=== PATIENT | female | born 1950 | race Caucasian/White ===

== ENCOUNTER → 2016-06-25 | Outpatient (CLI) | payer BC ==
[~2016-06-25] MED LIST: AMOX500T PO; DICL1GEL12 EX; KETO0.0216 OPB; LCTX PO; OMEP40CA41 PO; PANT1TAB48 PO; RANI300T2 PO; ULT50X PO
--- NOTE | 2016-06-25 07:55 | DIAGNOSTIC IMAGING REPORT ---
(BARIUM SWALLOW) ESOPHAGUS CLINICAL HISTORY: Generalized abdominal pain. Reflux. Nausea. COMPARISON STUDY: None. FLUOROSCOPY TIME: 1.2 minutes. 22 images submitted. FINDINGS: The patient swallowed barium without difficulty. The contours of the hypopharynx are within normal limits. The esophagus is normal in course, caliber, motility. No hiatus hernia. No gastroesophageal reflux. IMPRESSION: Normal barium swallow. Electronically signed by: Eduardo Knutson M.D. 06/25/2016 7:53 AM Dictated Date/Time: 06/25/2016 7:52 AM
== END | disposition home or self-care (01) ==
LOC: C.RAD 06:57
PROVIDERS: ATTEND Family Medicine
DX: K21.9 Gastro-esophageal reflux disease without esophagitis (principal)

== ENCOUNTER → 2016-07-02 | Outpatient (CLI) | payer BC ==
--- NOTE | 2016-07-02 16:25 | MAMMOGRAPHY REPORT ---
BILATERAL DIGITAL SCREENING MAMMOGRAM WITH CAD: 07/02/2016 CLINICAL HISTORY: Routine screening. Patient has no complaints. TECHNIQUE: Bilateral CC and MLO views were obtained. Current study was also evaluated with a Comput er Aided Detection (CAD) system. COMPARISON: Comparison is made to exams dated: 06/28/2015 mammogram, 06/22/2013 mammogram, 06/25/2014 ma mmogram, 06/20/2012 mammogram, 05/23/2011 mammogram, and 12/06/2010 mammogram - [facility] enter. BREAST COMPOSITION: The tissue of both breasts is extremely dense, which lowers the sensitivity of mammography. FINDINGS: The parenchymal pattern is unchanged. No developing mass, architectural distortion or clu ster of suspicious microcalcifications is seen in either breast. IMPRESSION: ACR BI-RADS CATEGORY 2: BENIGN There is no mammographic evidence of malignancy. A 1 year screening mammogram is recommended. The p atient will receive written notification of the results. Approximately 10% of breast cancers are not detected with mammography. A negative mammographic repor t should not delay biopsy if a clinically suggestive mass is present. Olesya Moran M.D. ay/:07/02/2016 14:44:39 [employer] Tender: Camille MELO(Etta)(Lynn), [facility] letter sent: Normal 1/2 BI-RADS Code: ACR BI-RADS Category 2: Benign
== END | disposition home or self-care (01) ==
LOC: C.MAMM 07:07
PROVIDERS: ATTEND Obstetrics & Gynecology
DX: Z12.31 Encounter for screening mammogram for malignant neoplasm of breast (principal)

== ENCOUNTER 2016-07-03 21:02 | Emergency (ER) | payer BC ==
[~2016-07-03] VITALS: Ht 157.5 cm; Wt 44.8 kg
[~2016-07-03 21:02] MED LIST changes: -AMOX500T PO; -DICL1GEL12 EX; -KETO0.0216 OPB; -LCTX PO; -OMEP40CA41 PO; -ULT50X PO
[2016-07-03 21:08] VITALS: TEMP 36.6; Ht 157.5 cm; Wt 44.8 kg
[2016-07-03] MEDS ORDERED: SODIUM CHLORIDE 0.9% 1000ML 1,000 ML IV STA (21:28)
[2016-07-03] MEDS ORDERED: MoRPHine SULFATE 2 MG/ML CARP IV STA ×2 (21:28→22:35)
[2016-07-03] MEDS ORDERED: ONDANSETRON INJ 2 MG/ML 2 ML VIAL IV STA (21:28)
[2016-07-03] MEDS ORDERED: SODIUM CHLORIDE 0.9% 500ML 500 ML IV STA (21:28)
[2016-07-03 21:36] LABS: BASO % 0.1 %; BASO ABS # 0.01 K/uL (0-0.2); COMPLETE YES; EOS % 1.3 %; HEMATOCRIT 41.9 % (37-47); IG% 0.2 %; LYMPH % 21.1 %; LYMPH ABS # 2.58 K/uL (1.2-3.4); MEAN CELL VOLUME 91.9 fL (80-100); MEAN CORPUSCULAR HEMOGLOBIN 32.5 pg (25-34); MEAN CORPUSCULAR HGB CONC 35.3 g/dl (32-36); MEAN PLATELET VOLUME 9.2 fL (7.4-10.4); MONO % 6.3 %; PLATELET COUNT 300 K/uL (130-400); RED BLOOD COUNT 4.56 M/uL (4.2-5.4); WHITE BLOOD COUNT 12.22 K/uL (4.8-10.8)
--- NOTE | 2016-07-03 21:41 | EMERGENCY ROOM VISIT NOTE ---
History Report prepared by Edwin: Moshe Rodriguez Under the Supervision of: Dr. Jesenia Hancock M.D. First contact with patient: 21:24 Chief Complaint: ABDOMINAL PAIN Stated Complaint: SEVERE STOMACH PAIN History of Present Illness The patient is a 65 year old female who presents to the Emergency Room with complaints of persistent right lower quadrant abdominal pain beginning several hours prior to arrival. She currently rates her discomfort as an 8/10 in severity. The patient associates intermittent abdominal spasms and increased gas with today's symptoms. She states she still has her appendix. The patient notes her discomfort has localized throughout the day. She states she has a history of diverticulitis. The patient notes she has had a hysterectomy. She denies blood in her stool, diarrhea, nausea, vomiting, and urinary symptoms. Source of History: patient Onset: several hours [employer] Position: abdomen (RLQ) Associated Symptoms: + abdominal pain (intermittent spasms), No diarrhea, No hematochezia, No melena, No nausea, No urinary symptoms, No vomiting Note: Associated symptoms: increased gas. Review of Systems See HPI for pertinent positives & negatives. A total of 10 systems reviewed and were otherwise negative. Past Medical & Surgical Medical Problems: (1) Deep venous thrombosis (2) Diverticulitis (3) Hysterectomy (4) Knee Surgery Surgical Problems: (1) S/P cholecystectomy Family History Diabetes mellitus Heart disease Hypertension Kidney stones Social History Smoking Status: Never Smoker Alcohol Use: occasionally Marital Status: Housing Status: lives with family Occupation Status: employed Current/Historical Medications Scheduled Amoxicillin & Pot Clavulanate (Augmentin 500MG), 1 TAB PO BID Omeprazole (Prilosec), 40 MG PO BID Ranitidine (Zantac), 300 MG PO BID Allergies Coded Allergies: Ciprofloxacin (Unverified Adverse Reaction, Intermediate, AFFECTED ALL JOINTS, 07/03/16) Cortisone (Unverified Adverse Reaction, Mild, swelling, 07/03/16) Physical Exam Vital Signs Date Time Temp Pulse Resp B/P Pulse Ox O2 Delivery O2 Flow Rate FiO2 07/03/16 23:13 78 20 123/97 97 07/03/16 22:28 75 20 144/69 95 Room Air 07/03/16 21:08 36.6 75 16 196/84 99 Room Air Physical Exam Vital signs reviewed. General: Well-appearing [], in no significant distress. HEENT: No scleral icterus, PERRLA, neck supple. Atraumatic. Cardiovascular: Regular rate and rhythm, no extra sounds. Pulmonary: Clear to auscultation bilaterally, normal work of breathing. Abdomen: Right lower quadrant abdominal tenderness to palpation. Mild guarding. Soft, nondistended, positive bowel sounds. Musculoskeletal: Atraumatic, no peripheral edema. Neurologic: Patient awake alert and oriented x 3, full strength in all 4 extremities. Cranial nerves 2 through 12 grossly intact. Skin: Warm, dry, no rash Medical Decision & Procedures ER Provider Diagnostic Interpretation: CT results as stated below per my review and radiologist interpretation: ABDOMEN AND PELVIS CT WITH IV CONTRAST CT DOSE: 256.53 mGy.cm HISTORY: Right lower quadrant abdominal pain. TECHNIQUE: Multiaxial CT images of the abdomen and pelvis were performed following the use of intravenous contrast. COMPARISON STUDY: Abdomen and pelvis CT 12/29/2015. FINDINGS: The study is limited from a technical standpoint due to the paucity of intra-abdominal fat and the lack of oral contrast. The lung bases are clear. No pneumoperitoneum. No pneumatosis. No suspicious lytic or blastic osseous lesions. Cholecystectomy. Mild intrahepatic bile duct dilatation remains unchanged. This is likely due to the patient's postcholecystectomy state. The spleen, pancreas, and adrenal glands are unremarkable. No hydronephrosis. A 5 mm hypodense lesion within the left kidney is too small to characterize but remain stable. No retroperitoneal lymphadenopathy. The bladder is unremarkable. The uterus appears surgically absent. No pelvic free fluid. There are few fluid-filled small bowel loops within the pelvis. No dilated loops of bowel to suggest an obstruction. The appendix is identified and is normal in caliber measuring up to 4 mm. Hyperdense material within the tip of the appendix is consistent with residual barium from a prior study. No evidence for bowel obstruction. Moderate stool within the colon. Distal sigmoid diverticulosis. There may be mild thickening of the distal sigmoid colon. However, this could be due to decompression or muscular hypertrophy. No definite pericolonic inflammatory change. IMPRESSION: 1. Possible mild thickening within the distal sigmoid colon. This could be due to the decompressed sigmoid colon or muscular hypertrophy. However, a developing diverticulitis could also have a similar appearance but is considered less likely given the lack of significant adjacent inflammatory change at consider follow-up endoscopy for further evaluation to evaluate for an inflammatory process or less likely an underlying colonic mass. 2. No evidence of bowel obstruction. 3. No CT evidence for acute appendicitis. Electronically signed by: Eduardo Knutson M.D. 07/03/2016 10:35 PM Laboratory Results 07/03/16 20:10 Red Blood Count 4.56, Mean Corpuscular Volume 91.9, Mean Corpuscular Hemoglobin 32.5, Mean Corpuscular Hemoglobin Concent 35.3, Mean Platelet Volume 9.2, Neutrophils (%) (Auto) 71.0, Lymphocytes (%) (Auto) 21.1, Monocytes (%) (Auto) 6.3, Eosinophils (%) (Auto) 1.3, Basophils (%) (Auto) 0.1, Neutrophils # (Auto) 8.67, Lymphocytes # (Auto) 2.58, Monocytes # (Auto) 0.77, Eosinophils # (Auto) 0.16, Basophils # (Auto) 0.01 07/03/16 20:10 Test 07/03/16 20:10 07/03/16 21:20 White Blood Count 12.22 K/uL (4.8-10.8) Red Blood Count 4.56 M/uL (4.2-5.4) Hemoglobin 14.8 g/dL (12.0-16.0) Hematocrit 41.9 % (37-47) Mean Corpuscular Volume 91.9 fL (80-100) Mean Corpuscular Hemoglobin 32.5 pg (25-34) Mean Corpuscular Hemoglobin Concent 35.3 g/dl (32-36) Platelet Count 300 K/uL (130-400) Mean Platelet Volume 9.2 fL (7.4-10.4) Neutrophils (%) (Auto) 71.0 % Lymphocytes (%) (Auto) 21.1 % Monocytes (%) (Auto) 6.3 % Eosinophils (%) (Auto) 1.3 % Basophils (%) (Auto) 0.1 % Neutrophils # (Auto) 8.67 K/uL (1.4-6.5) Lymphocytes # (Auto) 2.58 K/uL (1.2-3.4) Monocytes # (Auto) 0.77 K/uL (0.11-0.59) Eosinophils # (Auto) 0.16 K/uL (0-0.5) Basophils # (Auto) 0.01 K/uL (0-0.2) RDW Standard Deviation 42.4 fL (36.4-46.3) RDW Coefficient of Variation 12.6 % (11.5-14.5) Immature Granulocyte % (Auto) 0.2 % Immature Granulocyte # (Auto) 0.03 K/uL (0.00-0.02) Anion Gap 4.0 mmol/L (3-11) Est Creatinine Clear Calc Drug Dose 39.7 ml/min Estimated GFR () 68.5 Estimated GFR (Non- 59.1 BUN/Creatinine Ratio 12.9 (10-20) Calcium Level 9.5 mg/dl (8.5-10.1) Total Bilirubin 1.0 mg/dl (0.2-1) Direct Bilirubin 0.2 mg/dl (0-0.2) Aspartate Amino Transf (AST/SGOT) 20 U/L (15-37) Alanine Aminotransferase (ALT/SGPT) 28 U/L (12-78) Alkaline Phosphatase 97 U/L (45-117) Total Protein 7.8 gm/dl (6.4-8.2) Albumin 4.5 gm/dl (3.4-5.0) Lipase 352 U/L (73-393) Urine Color YELLOW Urine Appearance CLEAR (CLEAR) Urine pH 7.0 (4.5-7.5) Urine Specific [place] 1.005 (1.000-1.030) Urine Protein NEG (NEG) Urine Glucose (UA) NEG (NEG) Urine Ketones NEG (NEG) Urine Occult Blood NEG (NEG) Urine Nitrite NEG (NEG) Urine Bilirubin NEG (NEG) Urine Urobilinogen NEG (NEG) Urine Leukocyte Esterase TRACE (NEG) Urine WBC (Auto) 1-5 /hpf (0-5) Urine RBC (Auto) 0-4 /hpf (0-4) Urine Hyaline Casts (Auto) 0 /lpf (0-5) Urine Epithelial Cells (Auto) 10-20 /lpf (0-5) Urine Bacteria (Auto) NEG (NEG) Laboratory results per my review. Medications Administered Medications (Trade) Dose Ordered Sig/Austyn Route Start Time Stop Time Status Last Admin Dose Admin Sodium Chloride 500 ml @ 999 mls/hr Q31M STAT IV 07/03/16 21:28 07/03/16 21:58 DC 07/03/16 21:37 999 MLS/HR Sodium Chloride (Nss 1000ml) 1,000 ml @ 125 mls/hr Q8H STAT IV 07/03/16 21:28 07/03/16 23:30 DC 07/03/16 22:27 125 MLS/HR Morphine Sulfate (MoRPHine SULFATE INJ) 2 mg NOW STAT IV 07/03/16 21:28 07/03/16 21:30 DC 07/03/16 21:37 2 MG Ondansetron HCl (Zofran Inj) 4 mg NOW STAT IV 07/03/16 21:28 07/03/16 21:30 DC 07/03/16 21:37 4 MG Morphine Sulfate (MoRPHine SULFATE INJ) 2 mg NOW STAT IV 07/03/16 22:35 07/03/16 22:36 DC 07/03/16 22:41 2 MG Amoxicillin/ Clavulanate Potassium (Augmentin Tab) 500 mg NOW STAT PO 07/03/16 22:54 07/03/16 22:56 DC 07/03/16 23:07 500 MG ED Course 2123: Past medical records reviewed. The patient was evaluated in room C10. A complete history and physical examination was performed. 2127: Ordered Zofran Inj 4 mg IV, Morphine Sulfate 2 mg IV, Sodium Chloride 1, 000 ml @ 125 mls/hr IV, Sodium Chloride 500 ml @ 999 mls/hr IV. 5: Ordered Morphine Sulfate 2 mg IV. 2254: Ordered Augmentin Tab 500 mg PO. 2245: Upon reevaluation, the patient appeared to have improvement of her symptoms. I discussed findings with her. She verbalized agreement of the treatment plan. The patient was discharged home. Medical Decision Differential diagnosis: Etiologies such as appendicitis, diverticulitis, PUD, biliary pathology, UTI, pancreatitis, obstruction, mesenteric ischemia, aortic pathology, infections, inflammatory bowel disease, renal colic, as well as others were entertained. This patient was evaluated and appeared to be in some discomfort. IV access was obtained and laboratory work was drawn. The patient was placed on the media monitor and found to be in a normal sinus rhythm. She was hydrated with normal saline solution. Patient was given IV morphine and Zofran for pain and nausea. CT scan abdomen and pelvis was performed and reveals evidence of inflammation in the ascending colon or early diverticulitis. The patient has had difficulty with multiple antibiotics in the past. She has requested a smaller dose as she does not tolerate antibiotics well. The patient is only 45 kg. She will be placed on Augmentin 500 mg twice a day for 7 days. The patient was advised to follow-up with her primary care physician this week and return to the ER for worsening of symptoms or any medical concerns. Impression Primary Impression: Colitis Scribe Attestation The scribe's documentation has been prepared under my direction and personally reviewed by me in its entirety. I confirm that the note above accurately reflects all work, treatment, procedures, and medical decision making performed by me. Departure Information Dispostion Home / Self-Care Prescriptions Amoxicillin & Pot Clavulanate (AUGMENTIN 500MG) 1 Tab Tab 1 TAB PO BID for 7 Days, #14 TAB Prov: Jesenia Hancock M.D. 07/03/16 Referrals Garry Dobbins M.D.([facility]) (PCP) Forms HOME CARE DOCUMENTATION FORM, IMPORTANT VISIT INFORMATION Patient Instructions My [facility] Additional Instructions Diagnosis: Colitis Augmentin 500 mg twice daily for 7 days. Drink plenty of clear fluids and maintain a bland diet. Follow-up with gastroenterology as soon as possible for reevaluation. Follow-up with your primary care physician this week. Return to the ER for worsening of symptoms or any medical concerns.
[2016-07-03] MEDS ORDERED: OPTIRAY 320 IV PRN (21:45)
[2016-07-03 21:48] LABS: BUN/CREATININE RATIO 12.9 (10-20); CALCIUM 9.5 mg/dl (8.5-10.1); POTASSIUM 3.8 mmol/L (3.5-5.1)
[2016-07-03 22:05] LABS: URINE APPEARANCE CLEAR (CLEAR); URINE BILIRUBIN NEG (NEG); URINE COLOR YELLOW; URINE NITRITE NEG (NEG); URINE SPECIFIC GRAVITY 1.005 (1.000-1.030); UROBILINOGEN NEG (NEG); ZZUR CULT IF INDIC CLEAN CATCH NO
[2016-07-03 22:06] LABS: MANUAL MICROSCOPIC REQUIRED? NO; REVIEW REQ? NO
[2016-07-03] MEDS ORDERED: OMEP40CA41 PO (22:14)
--- NOTE | 2016-07-03 22:37 | DIAGNOSTIC IMAGING REPORT ---
ABDOMEN AND PELVIS CT WITH IV CONTRAST CT DOSE: 256.53 mGy.cm HISTORY: Right lower quadrant abdominal pain. TECHNIQUE: Multiaxial CT images of the abdomen and pelvis were performed following the use of intravenous contrast. COMPARISON STUDY: Abdomen and pelvis CT 12/29/2015. FINDINGS: The study is limited from a technical standpoint due to the paucity of intra-abdominal fat and the lack of oral contrast. The lung bases are clear. No pneumoperitoneum. No pneumatosis. No suspicious lytic or blastic osseous lesions. Cholecystectomy. Mild intrahepatic bile duct dilatation remains unchanged. This is likely due to the patient's postcholecystectomy state. The spleen, pancreas, and adrenal glands are unremarkable. No hydronephrosis. A 5 mm hypodense lesion within the left kidney is too small to characterize but remain stable. No retroperitoneal lymphadenopathy. The bladder is unremarkable. The uterus appears surgically absent. No pelvic free fluid. There are few fluid-filled small bowel loops within the pelvis. No dilated loops of bowel to suggest an obstruction. The appendix is identified and is normal in caliber measuring up to 4 mm. Hyperdense material within the tip of the appendix is consistent with residual barium from a prior study. No evidence for bowel obstruction. Moderate stool within the colon. Distal sigmoid diverticulosis. There may be mild thickening of the distal sigmoid colon. However, this could be due to decompression or muscular hypertrophy. No definite pericolonic inflammatory change. IMPRESSION: 1. Possible mild thickening within the distal sigmoid colon. This could be due to the decompressed sigmoid colon or muscular hypertrophy. However, a developing diverticulitis could also have a similar appearance but is considered less likely given the lack of significant adjacent inflammatory change at consider follow-up endoscopy for further evaluation to evaluate for an inflammatory process or less likely an underlying colonic mass. 2. No evidence of bowel obstruction. 3. No CT evidence for acute appendicitis. Electronically signed by: Eduardo Knutson M.D. 07/03/2016 10:35 PM Dictated Date/Time: 07/03/2016 10:25 PM
[2016-07-03] MEDS ORDERED: AMOXICILLIN/CLAVULANATE TAB 500 MG TAB PO STA (22:54)
[2016-07-03] MEDS ORDERED: AMOX500T PO (22:57)
[2016-07-03 23:13] VITALS: BP 123/97; PULSE 78; O2SAT 97
[2016-07-29] MEDS ORDERED: AMOX500T PO (13:33)
[2016-07-29] MEDS ORDERED: LCTX PO (13:33)
[2016-07-29] MEDS ORDERED: ULT50X PO (13:33)
== END 2016-07-03 23:15 | disposition home or self-care (01) ==
LOC: C.EDB 21:03 → C.EDC 23:15
DX: K52.9 Noninfective gastroenteritis and colitis, unspecified (principal); Z79.899 Other long term (current) drug therapy; Z86.718 Personal history of other venous thrombosis and embolism; Z87.19 Personal history of other diseases of the digestive system; Z90.710 Acquired absence of both cervix and uterus; Z82.49 Family history of ischemic heart disease and other diseases of the circulatory system; Z83.3 Family history of diabetes mellitus; Z84.1 Family history of disorders of kidney and ureter

== ENCOUNTER 2016-07-25 16:19 | Inpatient (IN) | payer BC, OTHER ==
[~2016-07-25] VITALS: Ht 160 cm; Wt 44.0 kg
[~2016-07-25 16:19] MED LIST changes: +OMEP40CA41 PO; -PANT1TAB48 PO
[2016-07-25] MEDS ORDERED: ONDANSETRON INJ 2 MG/ML 2 ML VIAL IV STA (16:35)
[2016-07-25] MEDS ORDERED: SODIUM CHLORIDE 0.9% 1000ML 1,000 ML IV STA ×2 (16:35→18:16)
[2016-07-25] MEDS ORDERED: MoRPHine SULFATE 4 MG/ML 1 ML CARP\\VIAL IV STA (16:35)
[2016-07-25] MEDS ORDERED: OPTIRAY 320 IV PRN (16:45)
--- NOTE | 2016-07-25 16:49 | EMERGENCY ROOM VISIT NOTE ---
History First contact with patient: 16:27 Chief Complaint: ABDOMINAL PAIN Stated Complaint: SEVERE ABDOMINAL PAIN Nursing Triage Summary: Pt presents with c/o lower abd pain worse on the left side that began last night. Nausea. Hx of diverticulitis, this feels worse. History of Present Illness The patient is a 65 year old female who presents to the Emergency Room with complaints of abdominal pain. The patient states the pain started last night. She states the pain is left lower quadrant. She reports associated nausea. She states the pain is severe and has persisted and worsened. She rates her discomfort an 8/10. She reports a feeling spasm that spreads across the lower abdomen. She denies any fevers or chills. She denies any pain in her chest or trouble breathing. She denies any diarrhea. She denies any urinary symptoms. The patient has a history of diverticulitis and states feels worse. She had a normal colonoscopy in February. The patient was seen here last month and diagnosed with colitis/possible early diverticulitis and is on Augmentin. Those symptoms seemed to resolve. Review of Systems A 10 system review of systems was completed with positives and pertinent negatives listed in the HPI. Past Medical/Surgical History Medical Problems: (1) Acute diverticulitis (2) Deep venous thrombosis (3) Diverticulitis (4) GERD (gastroesophageal reflux disease) (5) History of diverticulitis (6) Knee Surgery (7) Osteoarthritis Surgical Problems: (1) H/O colonoscopy (2) H/O esophagogastroduodenoscopy (3) History of cataract surgery (4) S/P cholecystectomy (5) S/P laparoscopic cholecystectomy (6) S/P LEVAR-BSO Family History Diabetes mellitus Heart disease Hypertension Kidney stones Social History Smoking Status: Never Smoker Alcohol Use: occasionally Marital Status: Housing Status: lives with family Occupation Status: employed Current/Historical Medications Scheduled Omeprazole (Prilosec), 40 MG PO BID Ranitidine (Zantac), 300 MG PO BID Scheduled PRN Diclofenac Sodium (Topical) (Voltaren 1% Top Gel), 1 APPLN EX UD PRN for Pain Ketotifen Fumarate (Ophth) (Zaditor 0.025% Oph), 1 DROP OPB Q12H PRN for seasonal allergies Allergies Coded Allergies: Ciprofloxacin (Unverified Adverse Reaction, Intermediate, AFFECTED ALL JOINTS, 5/3/17) Cortisone (Unverified Adverse Reaction, Mild, swelling, 07/25/16) Physical Exam Vital Signs Date Time Temp Pulse Resp B/P Pulse Ox O2 Delivery O2 Flow Rate FiO2 07/25/16 18:04 81 18 139/76 98 Room Air 07/25/16 16:22 36.6 92 18 165/87 98 Room Air Physical Exam VITALS: Vitals are noted on the nurse's note and reviewed by myself. Vital signs stable. The patient is afebrile. GENERAL: This is a 65-year-old female, in no acute distress, nondiaphoretic, well-developed well-nourished. SKIN: The skin was without rashes, erythema, edema, or bruising. There is no tenting of the skin. Capillary reflex less than 2 seconds. HEAD: Normocephalic atraumatic. EARS: External ears are normal in appearance. EYES: Pupils equal round and reactive to light and accommodation. Conjunctivae without injection, sclerae without icterus. Extraocular movements intact. NOSE: Patent, turbinates without inflammation or discharge. MOUTH: Mucous membranes moist. Tonsils are not enlarged. Pharynx without erythema or exudate. Uvula midline. Airway patent. Tongue does not deviate. NECK: Supple without nuchal rigidity. No lymphadenopathy. No thyromegaly. Cervical spine is nontender. No JVD. HEART: Regular rate and rhythm without murmurs gallops or rubs. LUNGS: Clear to auscultation bilaterally without wheezes, rales or rhonchi. No retractions or accessory muscle use. ABDOMEN: Positive bowel sounds x 4. Soft, marked LLQ pain, without masses or organomegaly. MUSCULOSKELETAL: No muscle atrophy, erythema, or edema noted. Full range of motion in all extremities. Normal gait. Strength 5/5 throughout. NEURO: Patient was alert and oriented to person place and time. No focal neurological deficits. Medical Decision & Procedures ER Provider Diagnostic Interpretation: [~ rep ct add3]] CT SCAN OF THE ABDOMEN AND PELVIS WITH IV CONTRAST CLINICAL HISTORY: Left lower quadrant abdominal pain. COMPARISON STUDY: Prior abdominal CT scans, most recently dated 07/03/2016. TECHNIQUE: Following the IV administration of 94 cc of Optiray 320, CT scan of the abdomen and pelvis is performed from the lung bases to the proximal femora. Images are reviewed in the axial, sagittal, and coronal planes. IV contrast was administered without complication. Automated dose control exposure was utilized. CT DOSE: 234.26 mGy.cm FINDINGS: Lung bases: The heart is normal in size and without pericardial effusion. The lung bases are clear. Liver: The contrast-enhanced liver is normal in size, contour, and attenuation. There is central intrahepatic biliary ductal dilatation, likely related to previous cholecystectomy. The hepatic veins and portal veins are patent. Gallbladder: Surgically absent noting clips in the gallbladder fossa. Spleen: Normal in size and attenuation. There is an indeterminant 1.6 cm low-attenuation lesion in the anterior spleen. This has not significantly changed dating back to 2013 and is of doubtful significance. Additional subcentimeter splenic densities are incidentally noted. Pancreas: Unremarkable. Adrenal glands: Unremarkable. Kidneys: The contrast enhanced kidneys are normal in size and without hydronephrosis. The kidneys enhance symmetrically. A subcentimeter cortical hypodensity in left kidney represent a cyst but is too small for definitive characterization. This is unchanged from previous. Abdominal vasculature: The abdominal aorta is normal in course and caliber. Bowel: There is no bowel obstruction. There is mild to moderate diverticulosis of the sigmoid colon. There is wall thickening and pericolonic inflammation identified involving the sigmoid colon typical in appearance for acute diverticulitis. There is no evidence of diverticular abscess. The appendix is nonocclusive visualized. Peritoneum: There is no intraperitoneal free air or abdominal ascites. Lymphadenopathy: None. Pelvic viscera: The bladder is normal as visualized. The uterus is surgically absent. No adnexal lesion is seen. Skeletal structures: The skeletal structures are osteopenic. No lytic or blastic lesions are seen. A sclerotic focus in the body of L3 is unchanged from 2013 and of doubtful significance. There is mild lumbosacral spondylosis. Degenerative change is also seen involving the sacroiliac joints. IMPRESSION: There is sigmoid diverticulosis, with wall thickening and pericolonic inflammation seen involving the sigmoid colon. The appearance likely represents acute sigmoid diverticulitis. No intraperitoneal free air is seen and there is no evidence of diverticular abscess. SINGLE VIEW CHEST CLINICAL HISTORY: Generalized abdominal pain. FINDINGS: An AP, portable, upright chest radiograph is compared to study dated 01/23/2016. The examination is degraded by portable technique and patient rotation. The cardiomediastinal silhouette is unremarkable. There is atherosclerotic calcification of the thoracic aorta. The lungs appear hyperinflated and hyperlucent with flattening the diaphragm suggesting emphysema. Biapical scarring is observed. No airspace consolidation or pleural effusion is seen. No pneumothorax is identified. The bony thorax is grossly intact. IMPRESSION: Findings suggest emphysema. There is no acute cardiopulmonary abnormality. Laboratory Results 07/25/16 16:40 Red Blood Count 4.51, Mean Corpuscular Volume 94.7, Mean Corpuscular Hemoglobin 32.8, Mean Corpuscular Hemoglobin Concent 34.7, Mean Platelet Volume 9.3, Neutrophils (%) (Auto) 86.1, Lymphocytes (%) (Auto) 7.9, Monocytes (%) (Auto) 5.4, Eosinophils (%) (Auto) 0.2, Basophils (%) (Auto) 0.1, Neutrophils # (Auto) 11.31, Lymphocytes # (Auto) 1.04, Monocytes # (Auto) 0.71, Eosinophils # (Auto) 0.02, Basophils # (Auto) 0.01 07/25/16 16:40 Test 07/25/16 04:44 07/25/16 16:40 07/25/16 16:42 07/25/16 16:59 White Blood Count 13.13 K/uL (4.8-10.8) Red Blood Count 4.51 M/uL (4.2-5.4) Hemoglobin 14.8 g/dL (12.0-16.0) Hematocrit 42.7 % (37-47) Mean Corpuscular Volume 94.7 fL (80-100) Mean Corpuscular Hemoglobin 32.8 pg (25-34) Mean Corpuscular Hemoglobin Concent 34.7 g/dl (32-36) Platelet Count 335 K/uL (130-400) Mean Platelet Volume 9.3 fL (7.4-10.4) Neutrophils (%) (Auto) 86.1 % Lymphocytes (%) (Auto) 7.9 % Monocytes (%) (Auto) 5.4 % Eosinophils (%) (Auto) 0.2 % Basophils (%) (Auto) 0.1 % Neutrophils # (Auto) 11.31 K/uL (1.4-6.5) Lymphocytes # (Auto) 1.04 K/uL (1.2-3.4) Monocytes # (Auto) 0.71 K/uL (0.11-0.59) Eosinophils # (Auto) 0.02 K/uL (0-0.5) Basophils # (Auto) 0.01 K/uL (0-0.2) RDW Standard Deviation 43.0 fL (36.4-46.3) RDW Coefficient of Variation 12.5 % (11.5-14.5) Immature Granulocyte % (Auto) 0.3 % Immature Granulocyte # (Auto) 0.04 K/uL (0.00-0.02) Prothrombin Time 11.1 SECONDS (9.0-12.0) Prothromb Time International Ratio 1.0 (0.9-1.1) Activated Partial Thromboplast Time 24.9 SECONDS (21.0-31.0) Partial Thromboplastin Ratio 1.0 Est Creatinine Clear Calc Drug Dose 41.4 ml/min Estimated GFR () 73.8 Estimated GFR (Non- 63.7 BUN/Creatinine Ratio 13.8 (10-20) Calcium Level 9.8 mg/dl (8.5-10.1) Total Bilirubin 1.8 mg/dl (0.2-1) Aspartate Amino Transf (AST/SGOT) 14 U/L (15-37) Alanine Aminotransferase (ALT/SGPT) 26 U/L (12-78) Alkaline Phosphatase 102 U/L (45-117) Total Protein 7.6 gm/dl (6.4-8.2) Albumin 4.6 gm/dl (3.4-5.0) Globulin 3.0 gm/dl (2.5-4.0) Albumin/Globulin Ratio 1.5 (0.9-2) Urine Color YELLOW Urine Appearance CLEAR (CLEAR) Urine pH 5.5 (4.5-7.5) Urine Specific [place] 1.023 (1.000-1.030) Urine Protein NEG (NEG) Urine Glucose (UA) NEG (NEG) Urine Ketones 3+ (NEG) Urine Occult Blood TRACE (NEG) Urine Nitrite NEG (NEG) Urine Bilirubin NEG (NEG) Urine Urobilinogen NEG (NEG) Urine Leukocyte Esterase TRACE (NEG) Urine WBC (Auto) 5-10 /hpf (0-5) Urine RBC (Auto) 0-4 /hpf (0-4) Urine Hyaline Casts (Auto) 1-5 /lpf (0-5) Urine Epithelial Cells (Auto) 10-20 /lpf (0-5) Urine Bacteria (Auto) NEG (NEG) Lactic Acid Level 1.0 mmol/L (0.4-2.0) Test 07/25/16 17:04 Bedside Hemoglobin 14.3 g/dl (12.0-16.0) Bedside Hematocrit 42 % (37-47) Bedside Sodium 138 mEq/L (135-144) Bedside Potassium 4.1 mEq/L (3.3-5.0) Bedside Chloride 103 mEq/L (101-112) Bedside Total CO2 21 mEq/l (24-31) Anion Gap 20.0 mmol/L (16-25) Bedside Blood Urea Nitrogen 12 mg/dl (7-18) Bedside Creatinine 0.7 mg/dl (0.6-1.3) Bedside Glucose (other) 114 mg/dl (70-99) Bedside Ionized Calcium (Epifanio) 1.17 mmol/l (1.12-1.32) Medications Administered Medications (Trade) Dose Ordered Sig/Austyn Route Start Time Stop Time Status Last Admin Dose Admin Sodium Chloride (Nss 1000ml) 1,000 ml @ 999 mls/hr Q1H1M STAT IV 07/25/16 16:35 07/25/16 17:35 DC 07/25/16 17:11 999 MLS/HR Ondansetron HCl (Zofran Inj) 4 mg NOW STAT IV 07/25/16 16:35 07/25/16 16:37 DC 07/25/16 16:54 4 MG Morphine Sulfate 4 mg 4 mg NOW STAT IV 07/25/16 16:35 07/25/16 16:37 DC 07/25/16 16:55 4 MG Ampicillin Sodium/ Sulbactam Sodium 3000 mg/Sodium Chloride 108 ml @ 200 mls/hr ONE ONCE IV 07/25/16 18:30 07/25/16 19:02 DC 07/25/16 19:11 200 MLS/HR Sodium Chloride (Nss 1000ml) 1,000 ml @ 125 mls/hr Q8H STAT IV 07/25/16 18:16 07/25/16 21:13 DC 07/25/16 18:24 125 MLS/HR Morphine Sulfate (MoRPHine SULFATE INJ) 2 mg NOW STAT IV 07/25/16 18:16 5/3/17 18:18 DC 07/25/16 18:24 2 MG ED Course The patient was seen and examined. Previous visits were reviewed. The patient does not have a fever but does have a leukocytosis of 13.13. She does not have any significant electrolyte abnormalities. Lactic acid is not elevated. INR was 1. Urinalysis suggests contamination. CT scan of the abdomen and pelvis with IV contrast was obtained as above and reveal sigmoid diverticulitis without evidence of free air or abscess The patient was hydrated with normal saline The patient was given 4 mg IV Zofran and 4 mg IV morphine with moderate improvement in her pain She was given IV Unasyn as she is allergic to ciprofloxacin. She was given additional 2 mg IV morphine The patient presents emergency department with recurrent diverticulitis. She has had significant pain and nausea home. The patient does have ketones on urine suggesting dehydration. The patient does not feel that she would tolerate oral medication at home very well. Therefore, I discussed the case with the hospitalist service and they will evaluate the patient. The case was discussed with Dr. Watt who agrees with the assessment and treatment plan. Medical Decision DIFFERENTIAL DIAGNOSIS: Hepatitis, cholecystitis, cholangitis, biliary colic, pancreatitis, pneumonia, subdiaphragmatic abscess, appendicitis, inguinal hernia , nephrolithiasis, inflammatory bowel disease, mesenteric adenitis, peptic ulcer disease, GERD, gastritis, pancreatitis, myocardial infarction, pericarditis, ruptured aortic aneurysm, appendicitis, gastroenteritis, bowel obstruction, splenic infarct, diverticulitis, mesenteric ischemia, metabolic, peritonitis, among others. Impression Primary Impression: Acute diverticulitis Departure Information Dispostion Admitted as an inpatient Condition GOOD Referrals Garry Dobbins M.D.([facility]) (PCP) Patient Instructions My [facility]
[2016-07-25 16:54] LABS: BASO % 0.1 %; BASO ABS # 0.01 K/uL (0-0.2); COMPLETE YES; EOS % 0.2 %; HEMATOCRIT 42.7 % (37-47); IG% 0.3 %; LYMPH % 7.9 %; LYMPH ABS # 1.04 K/uL (1.2-3.4); MEAN CELL VOLUME 94.7 fL (80-100); MEAN CORPUSCULAR HEMOGLOBIN 32.8 pg (25-34); MEAN CORPUSCULAR HGB CONC 34.7 g/dl (32-36); MEAN PLATELET VOLUME 9.3 fL (7.4-10.4); MONO % 5.4 %; NEUT % 86.1 %; PLATELET COUNT 335 K/uL (130-400); RED BLOOD COUNT 4.51 M/uL (4.2-5.4); WHITE BLOOD COUNT 13.13 K/uL (4.8-10.8)
--- NOTE | 2016-07-25 16:56 | DIAGNOSTIC IMAGING REPORT ---
SINGLE VIEW CHEST CLINICAL HISTORY: Generalized abdominal pain. FINDINGS: An AP, portable, upright chest radiograph is compared to study dated 01/23/2016. The examination is degraded by portable technique and patient rotation. The cardiomediastinal silhouette is unremarkable. There is atherosclerotic calcification of the thoracic aorta. The lungs appear hyperinflated and hyperlucent with flattening the diaphragm suggesting emphysema. Biapical scarring is observed. No airspace consolidation or pleural effusion is seen. No pneumothorax is identified. The bony thorax is grossly intact. IMPRESSION: Findings suggest emphysema. There is no acute cardiopulmonary abnormality. Electronically signed by: Jaun Boykin M.D. 07/25/2016 4:55 PM Dictated Date/Time: 07/25/2016 4:54 PM
[2016-07-25 16:59] LABS: URINE APPEARANCE CLEAR (CLEAR); URINE BILIRUBIN NEG (NEG); URINE COLOR YELLOW; URINE NITRITE NEG (NEG); URINE PH 5.5 (4.5-7.5); URINE SPECIFIC GRAVITY 1.023 (1.000-1.030); UROBILINOGEN NEG (NEG); ZZUR CULT IF INDIC CLEAN CATCH NO
[2016-07-25 17:01] LABS: MANUAL MICROSCOPIC REQUIRED? NO; REVIEW REQ? NO
[2016-07-25 17:02] LABS: PROTHROMBIN TIME (PATIENT) 11.1 SECONDS (9.0-12.0)
[2016-07-25 17:11] LABS: BUN/CREATININE RATIO 13.8 (10-20); CALCIUM 9.8 mg/dl (8.5-10.1); CREATININE 0.94 mg/dl (0.60-1.20)
[2016-07-25 17:14] LABS: ALB/GLOB RATIO 1.5 (0.9-2)
[2016-07-25 17:17] LABS: ISTAT CREATININE 0.7 mg/dl (0.6-1.3); ISTAT HEMOGLOBIN 14.3 g/dl (12.0-16.0); ISTAT IONIZED CALCIUM 1.17 mmol/l (1.12-1.32)
--- NOTE | 2016-07-25 18:00 | DIAGNOSTIC IMAGING REPORT ---
CT SCAN OF THE ABDOMEN AND PELVIS WITH IV CONTRAST CLINICAL HISTORY: Left lower quadrant abdominal pain. COMPARISON STUDY: Prior abdominal CT scans, most recently dated 07/03/2016. TECHNIQUE: Following the IV administration of 94 cc of Optiray 320, CT scan of the abdomen and pelvis is performed from the lung bases to the proximal femora. Images are reviewed in the axial, sagittal, and coronal planes. IV contrast was administered without complication. Automated dose control exposure was utilized. CT DOSE: 234.26 mGy.cm FINDINGS: Lung bases: The heart is normal in size and without pericardial effusion. The lung bases are clear. Liver: The contrast-enhanced liver is normal in size, contour, and attenuation. There is central intrahepatic biliary ductal dilatation, likely related to previous cholecystectomy. The hepatic veins and portal veins are patent. Gallbladder: Surgically absent noting clips in the gallbladder fossa. Spleen: Normal in size and attenuation. There is an indeterminant 1.6 cm low-attenuation lesion in the anterior spleen. This has not significantly changed dating back to 2012 and is of doubtful significance. Additional subcentimeter splenic densities are incidentally noted. Pancreas: Unremarkable. Adrenal glands: Unremarkable. Kidneys: The contrast enhanced kidneys are normal in size and without hydronephrosis. The kidneys enhance symmetrically. A subcentimeter cortical hypodensity in left kidney represent a cyst but is too small for definitive characterization. This is unchanged from previous. Abdominal vasculature: The abdominal aorta is normal in course and caliber. Bowel: There is no bowel obstruction. There is mild to moderate diverticulosis of the sigmoid colon. There is wall thickening and pericolonic inflammation identified involving the sigmoid colon typical in appearance for acute diverticulitis. There is no evidence of diverticular abscess. The appendix is nonocclusive visualized. Peritoneum: There is no intraperitoneal free air or abdominal ascites. Lymphadenopathy: None. Pelvic viscera: The bladder is normal as visualized. The uterus is surgically absent. No adnexal lesion is seen. Skeletal structures: The skeletal structures are osteopenic. No lytic or blastic lesions are seen. A sclerotic focus in the body of L3 is unchanged from 2013 and of doubtful significance. There is mild lumbosacral spondylosis. Degenerative change is also seen involving the sacroiliac joints. IMPRESSION: There is sigmoid diverticulosis, with wall thickening and pericolonic inflammation seen involving the sigmoid colon. The appearance likely represents acute sigmoid diverticulitis. No intraperitoneal free air is seen and there is no evidence of diverticular abscess. Electronically signed by: Jaun Boykin M.D. 07/25/2016 5:59 PM Dictated Date/Time: 07/25/2016 5:52 PM
[2016-07-25] MEDS ORDERED: MoRPHine SULFATE 2 MG/ML CARP IV STA (18:16)
[2016-07-25] MEDS ORDERED: AMPICILLIN/SULBACTAM SOD INJ 3,000 MG in SODIUM CHLORIDE 0.9% 100ML 100 ML IV ONE (18:30)
[2016-07-25] MEDS ORDERED: DICL1GEL12 EX (18:58)
[2016-07-25] MEDS ORDERED: KETO0.0216 OPB (18:58)
[2016-07-25] MEDS ORDERED: ENOXAPARIN 40 MG/0.4 ML SYR SQ SCH (19:15)
[2016-07-25] MEDS ORDERED: CEFTRIAXONE SOD INJ 1 GM in DEXTROSE 5% ADD-VANTAGE 50ML 50 ML IV SCH (19:30)
[2016-07-25] MEDS ORDERED: METRONIDAZOLE / NSS 500 MG in PREMIXED NSS 100 ML IV SCH (19:30)
--- NOTE | 2016-07-25 19:47 | History and Physical ---
History & Physical Date & Time of Service: July 25, 2016 at 19:01 Chief Complaint: Severe Abdominal Pain Primary Care Physician: Garry Dobbins M.D.([facility]O) History of Present Illness Source: patient, clinic records, hospital records This is a 65 year old female with PMH of diverticulitis, GERD, osteoarthritis, who presents to the ED with abdominal pain. Patient was recently seen in ER for abdominal in early June 2016 and treated with 7 day course of Augmentin for possible developing sigmoid diverticulitis seen on CT. Abdominal pain had resolved. Then last night around 8 pm she developed severe LLQ abdominal pain which radiates across the entire abdomen. She describes pain as spasms which wax and wane. She currently rates pain 8/10. Morphine given in ER helped. She reports associated chills as well as nausea which resolved with Zofran. She reports ongoing reflux despite being on omeprazole 40 mg BID and ranitidine 300 mg BID. She reports chronic dry cough attributed to reflux. Pt has seen Dr. Jon and is scheduled for pH impedance and motility study in August. Patient reports having a normal consistency BM this morning. She chronically has intermittent trace red blood on the toilet paper and rectal discomfort attributed to her known hemorrhoids. Weight is down approx 4 lb over past month. She did not eat today but appetite was normal before that. She denies fever, swallowing difficulty, chest pain, SOB, diarrhea, melena, dysuria, urinary frequency. Her first diverticulitis episode was last year and was treated as an outpatient and last's months possible episode was her second occurrence. NSAID use is rare (once per month). Last EGD/ colonoscopy in February 2016- results noted below. Past Medical/Surgical History Medical Problems: (1) Deep venous thrombosis Permanent Comment: possibly related to oral contraceptive pills; no longer on anticoagulation Status: Chronic (2) Diverticulitis Status: Resolved (3) GERD (gastroesophageal reflux disease) Status: Chronic (4) History of diverticulitis Status: Chronic (5) Knee Surgery Status: Resolved (6) Osteoarthritis Status: Chronic Surgical Problems: (1) H/O colonoscopy Status: Chronic (2) H/O esophagogastroduodenoscopy Status: Chronic (3) History of cataract surgery Status: Chronic (4) S/P cholecystectomy Status: Resolved (5) S/P laparoscopic cholecystectomy Status: Chronic (6) S/P LEVAR-BSO Status: Chronic Family History Cardiac disorder FATHER Diabetes mellitus FATHER MOTHER Heart disease MOTHER ( age 83 of [place]) Hypertension Kidney stones Social History Smoking Status: Never Smoker Alcohol Use: occasionally (rare) Drug Use: none Marital Status: Housing status: lives with significant other Occupational Status: employed Immunizations History of Influenza Vaccine: Yes Influenza Vaccine Date: Jan 22, 2012 History of Tetanus Vaccine?: Yes History of Pneumococcal: No History of Hepatitis B Vaccine: No Multi-Drug Resistant Organisms History of MDRO: No Allergies Coded Allergies: Ciprofloxacin (Unverified Adverse Reaction, Intermediate, AFFECTED ALL JOINTS, 07/25/16) Cortisone (Unverified Adverse Reaction, Mild, swelling, 07/25/16) Home Medications Scheduled Omeprazole (Prilosec), 40 MG PO BID Ranitidine (Zantac), 300 MG PO BID Scheduled PRN Diclofenac Sodium (Topical) (Voltaren 1% Top Gel), 1 APPLN EX UD PRN for Pain Ketotifen Fumarate (Ophth) (Zaditor 0.025% Oph), 1 DROP OPB Q12H PRN for seasonal allergies Review of Systems Ten systems reviewed and negative except as listed in HPI. Physical Exam Vital Signs Date Time Temp Pulse Resp B/P Pulse Ox O2 Delivery O2 Flow Rate FiO2 07/25/16 18:04 81 18 139/76 98 Room Air 07/25/16 16:22 36.6 92 18 165/87 98 Room Air General Appearance: + thin, + pertinent finding (very pleasant alert 65 year old female, lying in bed, no distress) Head: normocephalic, atraumatic Eyes: normal inspection, PERRL, EOMI ENT: hearing grossly normal, pharynx normal Neck: supple, trachea midline Respiratory/Chest: lungs clear, normal breath sounds, no respiratory distress Cardiovascular: regular rate, rhythm, no murmur Abdomen/GI: soft, + abnormal bowel sounds (hyperactive bowel sounds), + pertinent finding (moderately tender in left lower quadrant, mildly tender in right lower quadrant) Extremities/Musculoskelatal: no calf tenderness, no pedal edema Neurologic/Psych: alert, normal mood/affect, oriented x 3, + pertinent finding (no focal deficit on gross examination) Skin: normal color, warm/dry Diagnostics Laboratory Results Results Past 24 Hours Test 07/25/16 16:40 07/25/16 16:42 07/25/16 16:59 07/25/16 17:04 Range/Units White Blood Count 13.13 4.8-10.8 K/uL Red Blood Count 4.51 4.2-5.4 M/uL Hemoglobin 14.8 12.0-16.0 g/dL Hematocrit 42.7 37-47 % Mean Corpuscular Volume 94.7 80-100 fL Mean Corpuscular Hemoglobin 32.8 25-34 pg Mean Corpuscular Hemoglobin Concent 34.7 32-36 g/dl Platelet Count 335 130-400 K/uL Mean Platelet Volume 9.3 7.4-10.4 fL Neutrophils (%) (Auto) 86.1 % Lymphocytes (%) (Auto) 7.9 % Monocytes (%) (Auto) 5.4 % Eosinophils (%) (Auto) 0.2 % Basophils (%) (Auto) 0.1 % Neutrophils # (Auto) 11.31 1.4-6.5 K/uL Lymphocytes # (Auto) 1.04 1.2-3.4 K/uL Monocytes # (Auto) 0.71 0.11-0.59 K/uL Eosinophils # (Auto) 0.02 0-0.5 K/uL Basophils # (Auto) 0.01 0-0.2 K/uL RDW Standard Deviation 43.0 36.4-46.3 fL RDW Coefficient of Variation 12.5 11.5-14.5 % Immature Granulocyte % (Auto) 0.3 % Immature Granulocyte # (Auto) 0.04 0.00-0.02 K/uL Prothrombin Time 11.1 9.0-12.0 SECONDS Prothromb Time International Ratio 1.0 0.9-1.1 Activated Partial Thromboplast Time 24.9 21.0-31.0 SECONDS Partial Thromboplastin Ratio 1.0 Sodium Level 139 136-145 mmol/L Potassium Level 4.0 3.5-5.1 mmol/L Chloride Level 104 98-107 mmol/L Carbon Dioxide Level 27 21-32 mmol/L Anion Gap 8.0 20.0 16-25 mmol/L Blood Urea Nitrogen 13 7-18 mg/dl Creatinine 0.94 0.60-1.20 mg/dl Est Creatinine Clear Calc Drug Dose 41.4 ml/min Estimated GFR () 73.8 Estimated GFR (Non- 63.7 BUN/Creatinine Ratio 13.8 10-20 Random Glucose 111 70-99 mg/dl Calcium Level 9.8 8.5-10.1 mg/dl Total Bilirubin 1.8 0.2-1 mg/dl Aspartate Amino Transf (AST/SGOT) 14 15-37 U/L Alanine Aminotransferase (ALT/SGPT) 26 12-78 U/L Alkaline Phosphatase 102 45-117 U/L Total Protein 7.6 6.4-8.2 gm/dl Albumin 4.6 3.4-5.0 gm/dl Globulin 3.0 2.5-4.0 gm/dl Albumin/Globulin Ratio 1.5 0.9-2 Urine Color YELLOW Urine Appearance CLEAR CLEAR Urine pH 5.5 4.5-7.5 Urine Specific [place] 1.023 1.000-1.030 Urine Protein NEG NEG Urine Glucose (UA) NEG NEG Urine Ketones 3+ NEG Urine Occult Blood TRACE NEG Urine Nitrite NEG NEG Urine Bilirubin NEG NEG Urine Urobilinogen NEG NEG Urine Leukocyte Esterase TRACE NEG Urine WBC (Auto) 5-10 0-5 /hpf Urine RBC (Auto) 0-4 0-4 /hpf Urine Hyaline Casts (Auto) 1-5 0-5 /lpf Urine Epithelial Cells (Auto) 10-20 0-5 /lpf Urine Bacteria (Auto) NEG NEG Lactic Acid Level 1.0 0.4-2.0 mmol/L Bedside Hemoglobin 14.3 12.0-16.0 g/dl Bedside Hematocrit 42 37-47 % Bedside Sodium 138 135-144 mEq/L Bedside Potassium 4.1 3.3-5.0 mEq/L Bedside Chloride 103 101-112 mEq/L Bedside Total CO2 21 24-31 mEq/l Bedside Blood Urea Nitrogen 12 7-18 mg/dl Bedside Creatinine 0.7 0.6-1.3 mg/dl Bedside Glucose (other) 114 70-99 mg/dl Bedside Ionized Calcium (Epifanio) 1.17 1.12-1.32 mmol/l Diagnostic Radiology SINGLE VIEW CHEST CLINICAL HISTORY: Generalized abdominal pain. FINDINGS: An AP, portable, upright chest radiograph is compared to study dated 01/23/2016. The examination is degraded by portable technique and patient rotation. The cardiomediastinal silhouette is unremarkable. There is atherosclerotic calcification of the thoracic aorta. The lungs appear hyperinflated and hyperlucent with flattening the diaphragm suggesting emphysema. Biapical scarring is observed. No airspace consolidation or pleural effusion is seen. No pneumothorax is identified. The bony thorax is grossly intact. IMPRESSION: Findings suggest emphysema. There is no acute cardiopulmonary abnormality. CT SCAN OF THE ABDOMEN AND PELVIS WITH IV CONTRAST CLINICAL HISTORY: Left lower quadrant abdominal pain. COMPARISON STUDY: Prior abdominal CT scans, most recently dated 07/03/2016. TECHNIQUE: Following the IV administration of 94 cc of Optiray 320, CT scan of the abdomen and pelvis is performed from the lung bases to the proximal femora. Images are reviewed in the axial, sagittal, and coronal planes. IV contrast was administered without complication. Automated dose control exposure was utilized. CT DOSE: 234.26 mGy.cm FINDINGS: Lung bases: The heart is normal in size and without pericardial effusion. The lung bases are clear. Liver: The contrast-enhanced liver is normal in size, contour, and attenuation. There is central intrahepatic biliary ductal dilatation, likely related to previous cholecystectomy. The hepatic veins and portal veins are patent. Gallbladder: Surgically absent noting clips in the gallbladder fossa. Spleen: Normal in size and attenuation. There is an indeterminant 1.6 cm low-attenuation lesion in the anterior spleen. This has not significantly changed dating back to 2012 and is of doubtful significance. Additional subcentimeter splenic densities are incidentally noted. Pancreas: Unremarkable. Adrenal glands: Unremarkable. Kidneys: The contrast enhanced kidneys are normal in size and without hydronephrosis. The kidneys enhance symmetrically. A subcentimeter cortical hypodensity in left kidney represent a cyst but is too small for definitive characterization. This is unchanged from previous. Abdominal vasculature: The abdominal aorta is normal in course and caliber. Bowel: There is no bowel obstruction. There is mild to moderate diverticulosis of the sigmoid colon. There is wall thickening and pericolonic inflammation identified involving the sigmoid colon typical in appearance for acute diverticulitis. There is no evidence of diverticular abscess. The appendix is nonocclusive visualized. Peritoneum: There is no intraperitoneal free air or abdominal ascites. Lymphadenopathy: None. Pelvic viscera: The bladder is normal as visualized. The uterus is surgically absent. No adnexal lesion is seen. Skeletal structures: The skeletal structures are osteopenic. No lytic or blastic lesions are seen. A sclerotic focus in the body of L3 is unchanged from 2013 and of doubtful significance. There is mild lumbosacral spondylosis. Degenerative change is also seen involving the sacroiliac joints. IMPRESSION: There is sigmoid diverticulosis, with wall thickening and pericolonic inflammation seen involving the sigmoid colon. The appearance likely represents acute sigmoid diverticulitis. No intraperitoneal free air is seen and there is no evidence of diverticular abscess. Impression Assessment and Plan RECURRENT ACUTE SIGMOID DIVERTICULITIS Third episode; prior episodes in Nov 2015 and June [address] abdomen- acute sigmoid diverticulitis, no abscess or free air Afebrile; + leukocytosis (WBC 13k); HR and BP stable; lactic acid WNL Given dose of Unasyn in ER Will continue Unasyn; prior intolerance to Cipro and Flagyl noted IVF's; pain control with IV morphine PRN Clear liquid diet Consult general surgery GERD Has persistent symptoms despite current regimen of Prilosec and Zantac BID Seen by Dr. Jon; scheduled for pH impedance and motility study in August Continue current regimen (patient requests to bring in from home) HISTORY OF DVT In remote past possibly related to contraception pills No longer on anticoagulation RECTAL BLEEDING Known history of internal and external hemorrhoids Likely hemorrhoidal as pt reports occasional trace blood on toilet paper and rectal discomfort Hg is WNL DVT PROPHYLAXIS Lovenox SQ FULL CODE DISPOSITION Admit to med/surg Follows with Dr. Dobbins for primary care Patient seen in collaboration with Dr. Stewart. Please see his addendum. ADDENDUM: This is a 65 year old female with PMH of diverticulitis, GERD presents with acute lower abdominal pain, chills, nausea - presented to the ER and had a CT scan done, showing acute sigmoid diverticulitis. She has had this before with similar presentation, with good response to fluids and IV antibiotics. Currently pain is manageable. VITALS: Last Vital Signs Documentation Date Time Temp Pulse Resp B/P Pulse Ox O2 Delivery O2 Flow Rate FiO2 5/3/17 20:11 74 18 136/81 99 07/25/16 18:04 Room Air 07/25/16 16:22 36.6 GEN: no acute distress CVS: +s1, s2, RRR LUNGS: cta b/l, no wheezing ABD: tenderness, soft abdomen, tender to palpation in the lower abdomen, normal bowel sounds, no rigidity EXT: no edema Acute Sigmoid Diverticulitis recurrent episodes (third episode) mild leukocytosis, afebrile CT abdomen does not show abscess, perforation, etc. allergic to Cipro and does not tolerate Flagyl well will continue IV Unasyn, IVFs, clear liquid diet and advance on 07/26 if tolerated analgesics and antiemetics PRN general surgery consultation due to recurrent episodes GERD patient has persistent symptoms despite being on Prilosec BID and Zantac BID is scheduled for outpatient pH studies with GI for now, continue current medications VTE Prophylaxis VTE Risk Assessment Done? Y/N: Yes Risk Level: Moderate
[2016-07-25] MEDS ORDERED: AMPICILLIN/SULBACTAM CONSULT ACTIVE PRN ×2 (21:16)
[2016-07-25] MEDS: MoRPHine SULFATE 4 MG/ML 1 ML CARP\\VIAL IV PRN (21:44)
[2016-07-25] MEDS: SODIUM CHLORIDE 0.9% 1000ML 1,000 ML IV SCH (21:59)
[2016-07-25] MEDS: HEPARIN SOD 5000 UNIT/0.5 ML CARP SQ SCH (22:00)
[2016-07-25 22:02] VITALS: BP 161/69; PULSE 82; TEMP 36.8; O2SAT 96; Ht 160 cm; Wt 44.0 kg
[2016-07-26 00:20] VITALS: BP 121/68; PULSE 69; TEMP 36.9; O2SAT 97
[2016-07-26] MEDS ORDERED: NURSING VERBAL MED ORDER ONE (01:00)
[2016-07-26] MEDS ORDERED: OMEPRAZOLE 40 MG PO STA (01:07)
[2016-07-26] MEDS ORDERED: RANITIDINE 300 MG PO STA (01:08)
[2016-07-26] MEDS: MoRPHine SULFATE 4 MG/ML 1 ML CARP\\VIAL IV PRN ×3 (01:50→21:56)
[2016-07-26] MEDS: AMPICILLIN/SULBACTAM SOD INJ 3,000 MG in SODIUM CHLORIDE 0.9% 100ML 100 ML IV SCH ×2 (01:50→07:56)
[2016-07-26] MEDS: ONDANSETRON INJ 2 MG/ML 2 ML VIAL IV PRN ×3 (01:50→21:57)
[2016-07-26] MEDS: SODIUM CHLORIDE 0.9% 1000ML 1,000 ML IV SCH ×2 (05:06→14:40)
[2016-07-26 07:05] LABS: HEMATOCRIT 35.8 % (37-47); MEAN CELL VOLUME 95.7 fL (80-100); MEAN CORPUSCULAR HEMOGLOBIN 32.4 pg (25-34); MEAN CORPUSCULAR HGB CONC 33.8 g/dl (32-36); MEAN PLATELET VOLUME 9.4 fL (7.4-10.4); PLATELET COUNT 279 K/uL (130-400); RED BLOOD COUNT 3.74 M/uL (4.2-5.4); WHITE BLOOD COUNT 7.28 K/uL (4.8-10.8)
[2016-07-26 07:38] VITALS: BP 105/63; PULSE 68; TEMP 36.6; O2SAT 97
[2016-07-26] MEDS: OMEPRAZOLE 40 MG PO SCH ×2 (07:56→17:12)
[2016-07-26] MEDS: HEPARIN SOD 5000 UNIT/0.5 ML CARP SQ SCH ×2 (07:56→20:36)
[2016-07-26] MEDS ORDERED: PIPERACILL/TAZOBAC CONSULT ACTIVE PRN (08:30)
[2016-07-26] MEDS ORDERED: OMEPRAZOLE 40 MG PO SCH (09:00)
[2016-07-26] MEDS ORDERED: PIPERACILL/TAZOBAC IV 3.375 GM in DEXTROSE 5% 100ML IV ONE (09:00)
[2016-07-26 11:06] VITALS: BP 118/61; PULSE 67; TEMP 36.7; O2SAT 97
[2016-07-26] MEDS: RANITIDINE 300 MG PO SCH ×2 (11:57→21:55)
--- NOTE | 2016-07-26 14:32 | Progress Note ---
Internal Med Progress Note Date of Service: July 26, 2016. Provider Documentation: SUBJECTIVE: The patient was seen and examined Left lower quadrant pain is much better No Fever,chills No Nausea and or vomiting OBJECTIVE: Vital Signs-as noted below Exam: General-No distress t rest Eyes-normal ENT-normal Neck-supple Lungs-clear to ausucltate bilaterally Heart-Regular,no murmur appreciated Abdomen-Soft,mildly tender LLQ,no masses,bowel sound present Extremities-No edema [id number] Lab data as noted below. ASSESSMENT & PLAN: RECURRENT ACUTE SIGMOID DIVERTICULITIS Third episode; prior episodes in Nov 2015 and June [address] abdomen- acute sigmoid diverticulitis, no abscess or free air Given dose of Unasyn in ER Now on IV Zosyn , prior intolerance to Cipro and Flagyl noted IVF's; pain control with IV morphine PRN Clear liquid diet Consult general surgery Clinically better -WCC normalized,no fever,chills GERD Has persistent symptoms despite current regimen of Prilosec and Zantac BID Seen by Dr. Jon; scheduled for pH impedance and motility study in August Continue current regimen (patient requests to bring in from home) Denies any symptoms now HISTORY OF DVT In remote past possibly related to contraception pills No longer on anticoagulation No signs and or symptoms of DVT RECTAL BLEEDING Known history of internal and external hemorrhoids Likely hemorrhoidal as pt reports occasional trace blood on toilet paper and rectal discomfort No Obvious bleeding and or diarrhea DVT PROPHYLAXIS Lovenox SQ FULL CODE DISPOSITION Admit to med/surg Follows with Dr. Dobbins for primary care Vital Signs: Date Time Temp Pulse Resp B/P Pulse Ox O2 Delivery O2 Flow Rate FiO2 07/26/16 11:06 36.7 67 16 118/61 97 Room Air 07/26/16 08:00 Room Air 07/26/16 07:38 36.6 68 18 105/63 97 Room Air 07/26/16 00:20 36.9 69 18 121/68 97 Room Air 07/26/16 00:00 Room Air 07/25/16 22:02 36.8 82 20 161/69 96 Room Air 07/25/16 20:11 74 18 136/81 99 07/25/16 18:04 81 18 139/76 98 Room Air 07/25/16 16:22 36.6 92 18 165/87 98 Room Air Lab Results: Results Past 24 Hours Test 07/25/16 16:40 07/25/16 16:42 07/25/16 16:59 07/25/16 17:04 Range/Units White Blood Count 13.13 4.8-10.8 K/uL Red Blood Count 4.51 4.2-5.4 M/uL Hemoglobin 14.8 12.0-16.0 g/dL Hematocrit 42.7 37-47 % Mean Corpuscular Volume 94.7 80-100 fL Mean Corpuscular Hemoglobin 32.8 25-34 pg Mean Corpuscular Hemoglobin Concent 34.7 32-36 g/dl Platelet Count 335 130-400 K/uL Mean Platelet Volume 9.3 7.4-10.4 fL Neutrophils (%) (Auto) 86.1 % Lymphocytes (%) (Auto) 7.9 % Monocytes (%) (Auto) 5.4 % Eosinophils (%) (Auto) 0.2 % Basophils (%) (Auto) 0.1 % Neutrophils # (Auto) 11.31 1.4-6.5 K/uL Lymphocytes # (Auto) 1.04 1.2-3.4 K/uL Monocytes # (Auto) 0.71 0.11-0.59 K/uL Eosinophils # (Auto) 0.02 0-0.5 K/uL Basophils # (Auto) 0.01 0-0.2 K/uL RDW Standard Deviation 43.0 36.4-46.3 fL RDW Coefficient of Variation 12.5 11.5-14.5 % Immature Granulocyte % (Auto) 0.3 % Immature Granulocyte # (Auto) 0.04 0.00-0.02 K/uL Prothrombin Time 11.1 9.0-12.0 SECONDS Prothromb Time International Ratio 1.0 0.9-1.1 Activated Partial Thromboplast Time 24.9 21.0-31.0 SECONDS Partial Thromboplastin Ratio 1.0 Sodium Level 139 136-145 mmol/L Potassium Level 4.0 3.5-5.1 mmol/L Chloride Level 104 98-107 mmol/L Carbon Dioxide Level 27 21-32 mmol/L Anion Gap 8.0 20.0 16-25 mmol/L Blood Urea Nitrogen 13 7-18 mg/dl Creatinine 0.94 0.60-1.20 mg/dl Est Creatinine Clear Calc Drug Dose 41.4 ml/min Estimated GFR () 73.8 Estimated GFR (Non- 63.7 BUN/Creatinine Ratio 13.8 10-20 Random Glucose 111 70-99 mg/dl Calcium Level 9.8 8.5-10.1 mg/dl Total Bilirubin 1.8 0.2-1 mg/dl Aspartate Amino Transf (AST/SGOT) 14 15-37 U/L Alanine Aminotransferase (ALT/SGPT) 26 12-78 U/L Alkaline Phosphatase 102 45-117 U/L Total Protein 7.6 6.4-8.2 gm/dl Albumin 4.6 3.4-5.0 gm/dl Globulin 3.0 2.5-4.0 gm/dl Albumin/Globulin Ratio 1.5 0.9-2 Urine Color YELLOW Urine Appearance CLEAR CLEAR Urine pH 5.5 4.5-7.5 Urine Specific [place] 1.023 1.000-1.030 Urine Protein NEG NEG Urine Glucose (UA) NEG NEG Urine Ketones 3+ NEG Urine Occult Blood TRACE NEG Urine Nitrite NEG NEG Urine Bilirubin NEG NEG Urine Urobilinogen NEG NEG Urine Leukocyte Esterase TRACE NEG Urine WBC (Auto) 5-10 0-5 /hpf Urine RBC (Auto) 0-4 0-4 /hpf Urine Hyaline Casts (Auto) 1-5 0-5 /lpf Urine Epithelial Cells (Auto) 10-20 0-5 /lpf Urine Bacteria (Auto) NEG NEG Lactic Acid Level 1.0 0.4-2.0 mmol/L Bedside Hemoglobin 14.3 12.0-16.0 g/dl Bedside Hematocrit 42 37-47 % Bedside Sodium 138 135-144 mEq/L Bedside Potassium 4.1 3.3-5.0 mEq/L Bedside Chloride 103 101-112 mEq/L Bedside Total CO2 21 24-31 mEq/l Bedside Blood Urea Nitrogen 12 7-18 mg/dl Bedside Creatinine 0.7 0.6-1.3 mg/dl Bedside Glucose (other) 114 70-99 mg/dl Bedside Ionized Calcium (Epifanio) 1.17 1.12-1.32 mmol/l Test 07/26/16 06:28 Range/Units White Blood Count 7.28 4.8-10.8 K/uL Red Blood Count 3.74 4.2-5.4 M/uL Hemoglobin 12.1 12.0-16.0 g/dL Hematocrit 35.8 37-47 % Mean Corpuscular Volume 95.7 80-100 fL Mean Corpuscular Hemoglobin 32.4 25-34 pg Mean Corpuscular Hemoglobin Concent 33.8 32-36 g/dl RDW Standard Deviation 43.5 36.4-46.3 fL RDW Coefficient of Variation 12.5 11.5-14.5 % Platelet Count 279 130-400 K/uL Mean Platelet Volume 9.4 7.4-10.4 fL Hepatitis C Antibody Screen NEG NEG
[2016-07-26 15:25] VITALS: BP 118/72; PULSE 63; TEMP 37; O2SAT 98
--- NOTE | 2016-07-26 15:43 | Medical Consult ---
Consultation Date of Consultation: July 26, 2016. Attending Physician: Abiodun Umanzor M.D. History of Present Illness 65 y/o female admitted for LLQ pain that began yesterday afternoon rather suddenly. She was treated three weeks ago with Augmentin for possible developing diverticulitis seen on CT in the ER. Her symptoms had resolved after finishing the antibiotic. Her first attack was one year ago and treated also with outpatient Denise Garvin. She has not had any diarrhea, has been trying to watch her diet. She has had regular colonoscopies and recent in February. She follows with GI also for GERD. Past Medical/Surgical History Medical Problems: (1) Acute diverticulitis (2) Deep venous thrombosis (3) Diverticulitis (4) GERD (gastroesophageal reflux disease) (5) History of diverticulitis (6) Knee Surgery (7) Osteoarthritis Surgical Problems: (1) H/O colonoscopy (2) H/O esophagogastroduodenoscopy (3) History of cataract surgery (4) S/P cholecystectomy (5) S/P laparoscopic cholecystectomy (6) S/P LEVAR-BSO Family History Cardiac disorder FATHER Diabetes mellitus FATHER MOTHER Heart disease MOTHER ( age 83 of [place]) Hypertension Kidney stones Social History Smoking Status: Never Smoker Alcohol Use: occasionally (rare) Drug Use: none Marital Status: Housing Status: lives with family Occupation Status: employed Allergies Coded Allergies: Ciprofloxacin (Unverified Adverse Reaction, Intermediate, AFFECTED ALL JOINTS, 07/25/16) Cortisone (Unverified Adverse Reaction, Mild, swelling, 07/25/16) Current Inpatient Medications Current Inpatient Medications Medications (Trade) Dose Ordered Sig/Austyn Route Start Time Stop Time Status Last Admin Dose Admin Ioversol (Optiray 320) 111 ml UD PRN IV 07/25/16 16:45 07/29/16 16:44 Acetaminophen (Tylenol Tab) 650 mg Q4H PRN PO 07/25/16 19:00 08/24/16 18:59 Ondansetron HCl (Zofran Inj) 4 mg Q6H PRN IV 07/25/16 19:00 08/24/16 18:59 07/26/16 08:04 4 MG Morphine Sulfate 3 mg 3 mg Q4H PRN IV 07/25/16 19:00 08/08/16 18:59 07/26/16 08:04 3 MG Sodium Chloride (Nss 1000ml) 1,000 ml @ 100 mls/hr Q10H IV 07/25/16 19:00 08/24/16 18:59 07/26/16 14:40 100 MLS/HR Heparin Sodium (Porcine) (Heparin Sq 5000 Unit/0.5ml) 5,000 unit Q12 SQ 07/25/16 22:00 08/24/16 21:59 Omeprazole (Omeprazole) 40 mg BID@0900,1700 PO 07/26/16 09:00 08/25/16 08:59 07/26/16 07:56 40 MG Non-Formulary Medication 1 ea 1 ea BID@1200,2100 PO 07/26/16 12:00 08/25/16 11:59 07/26/16 11:57 1 EA Piperacillin Sod/ Tazobactam Sod/ Dextrose (Zosyn Iv/D5 100ml) 115 ml @ 28.75 mls/ hr Q8@0000,0800,1600 IV 07/26/16 16:00 08/05/16 07:59 Piperacillin Sod/ Tazobactam Sod (Consult) 1 ea UD PRN N/A 07/26/16 08:30 08/25/16 08:29 Review of Systems Constitutional: No chills, No fever Abdomen: No constipation, No diarrhea, No nausea, No pain Physical Exam Date Time Temp Pulse Resp B/P Pulse Ox O2 Delivery O2 Flow Rate FiO2 07/26/16 11:06 36.7 67 16 118/61 97 Room Air 07/26/16 08:00 Room Air 07/26/16 07:38 36.6 68 18 105/63 97 Room Air 07/26/16 00:20 36.9 69 18 121/68 97 Room Air 07/26/16 00:00 Room Air 07/25/16 22:02 36.8 82 20 161/69 96 Room Air 07/25/16 20:11 74 18 136/81 99 07/25/16 18:04 81 18 139/76 98 Room Air 07/25/16 16:22 36.6 92 18 165/87 98 Room Air General Appearance: no apparent distress Respiratory/Chest: chest non-tender, lungs clear Cardiovascular: regular rate, rhythm Abdomen/GI: soft, + tenderness (LLQ), + guarding (LLQ) Neurologic/Psych: alert, normal mood/affect Laboratory Results Last 24 Hours Test 07/25/16 16:40 07/25/16 16:42 07/25/16 16:59 07/25/16 17:04 White Blood Count 13.13 K/uL Red Blood Count 4.51 M/uL Hemoglobin 14.8 g/dL Hematocrit 42.7 % Mean Corpuscular Volume 94.7 fL Mean Corpuscular Hemoglobin 32.8 pg Mean Corpuscular Hemoglobin Concent 34.7 g/dl Platelet Count 335 K/uL Mean Platelet Volume 9.3 fL Neutrophils (%) (Auto) 86.1 % Lymphocytes (%) (Auto) 7.9 % Monocytes (%) (Auto) 5.4 % Eosinophils (%) (Auto) 0.2 % Basophils (%) (Auto) 0.1 % Neutrophils # (Auto) 11.31 K/uL Lymphocytes # (Auto) 1.04 K/uL Monocytes # (Auto) 0.71 K/uL Eosinophils # (Auto) 0.02 K/uL Basophils # (Auto) 0.01 K/uL RDW Standard Deviation 43.0 fL RDW Coefficient of Variation 12.5 % Immature Granulocyte % (Auto) 0.3 % Immature Granulocyte # (Auto) 0.04 K/uL Prothrombin Time 11.1 SECONDS Prothromb Time International Ratio 1.0 Activated Partial Thromboplast Time 24.9 SECONDS Partial Thromboplastin Ratio 1.0 Sodium Level 139 mmol/L Potassium Level 4.0 mmol/L Chloride Level 104 mmol/L Carbon Dioxide Level 27 mmol/L Anion Gap 8.0 mmol/L 20.0 mmol/L Blood Urea Nitrogen 13 mg/dl Creatinine 0.94 mg/dl Est Creatinine Clear Calc Drug Dose 41.4 ml/min Estimated GFR () 73.8 Estimated GFR (Non- 63.7 BUN/Creatinine Ratio 13.8 Random Glucose 111 mg/dl Calcium Level 9.8 mg/dl Total Bilirubin 1.8 mg/dl Aspartate Amino Transf (AST/SGOT) 14 U/L Alanine Aminotransferase (ALT/SGPT) 26 U/L Alkaline Phosphatase 102 U/L Total Protein 7.6 gm/dl Albumin 4.6 gm/dl Globulin 3.0 gm/dl Albumin/Globulin Ratio 1.5 Urine Color YELLOW Urine Appearance CLEAR Urine pH 5.5 Urine Specific [place] 1.023 Urine Protein NEG Urine Glucose (UA) NEG Urine Ketones 3+ Urine Occult Blood TRACE Urine Nitrite NEG Urine Bilirubin NEG Urine Urobilinogen NEG Urine Leukocyte Esterase TRACE Urine WBC (Auto) 5-10 /hpf Urine RBC (Auto) 0-4 /hpf Urine Hyaline Casts (Auto) 1-5 /lpf Urine Epithelial Cells (Auto) 10-20 /lpf Urine Bacteria (Auto) NEG Lactic Acid Level 1.0 mmol/L Bedside Hemoglobin 14.3 g/dl Bedside Hematocrit 42 % Bedside Sodium 138 mEq/L Bedside Potassium 4.1 mEq/L Bedside Chloride 103 mEq/L Bedside Total CO2 21 mEq/l Bedside Blood Urea Nitrogen 12 mg/dl Bedside Creatinine 0.7 mg/dl Bedside Glucose (other) 114 mg/dl Bedside Ionized Calcium (Epifanio) 1.17 mmol/l Test 07/26/16 06:28 White Blood Count 7.28 K/uL Red Blood Count 3.74 M/uL Hemoglobin 12.1 g/dL Hematocrit 35.8 % Mean Corpuscular Volume 95.7 fL Mean Corpuscular Hemoglobin 32.4 pg Mean Corpuscular Hemoglobin Concent 33.8 g/dl RDW Standard Deviation 43.5 fL RDW Coefficient of Variation 12.5 % Platelet Count 279 K/uL Mean Platelet Volume 9.4 fL Hepatitis C Antibody Screen NEG CT SCAN OF THE ABDOMEN AND PELVIS WITH IV CONTRAST CLINICAL HISTORY: Left lower quadrant abdominal pain. COMPARISON STUDY: Prior abdominal CT scans, most recently dated 07/03/2016. TECHNIQUE: Following the IV administration of 94 cc of Optiray 320, CT scan of the abdomen and pelvis is performed from the lung bases to the proximal femora. Images are reviewed in the axial, sagittal, and coronal planes. IV contrast was administered without complication. Automated dose control exposure was utilized. CT DOSE: 234.26 mGy.cm FINDINGS: Lung bases: The heart is normal in size and without pericardial effusion. The lung bases are clear. Liver: The contrast-enhanced liver is normal in size, contour, and attenuation. There is central intrahepatic biliary ductal dilatation, likely related to previous cholecystectomy. The hepatic veins and portal veins are patent. Gallbladder: Surgically absent noting clips in the gallbladder fossa. Spleen: Normal in size and attenuation. There is an indeterminant 1.6 cm low-attenuation lesion in the anterior spleen. This has not significantly changed dating back to 2012 and is of doubtful significance. Additional subcentimeter splenic densities are incidentally noted. Pancreas: Unremarkable. Adrenal glands: Unremarkable. Kidneys: The contrast enhanced kidneys are normal in size and without hydronephrosis. The kidneys enhance symmetrically. A subcentimeter cortical hypodensity in left kidney represent a cyst but is too small for definitive characterization. This is unchanged from previous. Abdominal vasculature: The abdominal aorta is normal in course and caliber. Bowel: There is no bowel obstruction. There is mild to moderate diverticulosis of the sigmoid colon. There is wall thickening and pericolonic inflammation identified involving the sigmoid colon typical in appearance for acute diverticulitis. There is no evidence of diverticular abscess. The appendix is nonocclusive visualized. Peritoneum: There is no intraperitoneal free air or abdominal ascites. Lymphadenopathy: None. Pelvic viscera: The bladder is normal as visualized. The uterus is surgically absent. No adnexal lesion is seen. Skeletal structures: The skeletal structures are osteopenic. No lytic or blastic lesions are seen. A sclerotic focus in the body of L3 is unchanged from 2013 and of doubtful significance. There is mild lumbosacral spondylosis. Degenerative change is also seen involving the sacroiliac joints. IMPRESSION: There is sigmoid diverticulosis, with wall thickening and pericolonic inflammation seen involving the sigmoid colon. The appearance likely represents acute sigmoid diverticulitis. No intraperitoneal free air is seen and there is no evidence of diverticular abscess. Electronically signed by: Jaun Boykin M.D. 07/25/2016 5:59 PM Dictated Date/Time: 07/25/2016 5:52 PM Assessment & Plan Diverticulitis Her WBC is improved but she is very tender. She has clears ordered but would give sparingly and advance slowly. I've changed her Unasyn to Zosyn and would consider adding Flagyl if she is not improved in the next 24 hours. This is only her second attack and first admission for uncomplicated diverticulitis. If her condition declines she may require surgery, but hopefully she'll respond to IV antibiotics. She was seen also this morning by Dr. Farris.
[2016-07-26] MEDS: PIPERACILL/TAZOBAC IV 3.375 GM in DEXTROSE 5% 100ML 100 ML IV SCH ×2 (15:57→23:44)
[2016-07-26] MEDS: ACETAMINOPHEN 325 MG TAB PO PRN (15:58)
[2016-07-26 16:00] VITALS: O2SAT 98
[2016-07-26 23:16] VITALS: BP 112/70; PULSE 50; TEMP 36.6; O2SAT 98
[2016-07-27] MEDS: SODIUM CHLORIDE 0.9% 1000ML 1,000 ML IV SCH ×2 (01:06→14:12)
[2016-07-27 07:15] VITALS: BP 159/73; PULSE 57; TEMP 37.5; O2SAT 97
[2016-07-27] MEDS: PIPERACILL/TAZOBAC IV 3.375 GM in DEXTROSE 5% 100ML 100 ML IV SCH ×3 (07:57→23:38)
[2016-07-27] MEDS: OMEPRAZOLE 40 MG PO SCH ×2 (07:58→16:46)
[2016-07-27] MEDS: ACETAMINOPHEN 325 MG TAB PO PRN (08:01)
[2016-07-27] MEDS: HEPARIN SOD 5000 UNIT/0.5 ML CARP SQ SCH ×2 (08:01→21:00)
--- NOTE | 2016-07-27 08:34 | Surgery Progress Note ---
Surgery Progress Note Date of Service July 27, 2016. Subjective feels better but still some discomfort LLQ, taking less morphine, no BM Objective Vital Signs: Date Time Temp Pulse Resp B/P Pulse Ox O2 Delivery O2 Flow Rate FiO2 07/27/16 07:15 37.5 57 18 159/73 97 Room Air 07/27/16 00:00 Room Air 07/26/16 23:16 36.6 50 20 112/70 98 Room Air 07/26/16 16:00 98 Room Air 07/26/16 15:25 37.0 63 18 118/72 98 Room Air 07/26/16 11:06 36.7 67 16 118/61 97 Room Air Abdomen: soft, + tenderness (LLQ less, no guarding) Assessment & Plan diverticulitis improving, continue IV zosyn ok to have full liquids, decreased IV to 50 cc/hr seen by Dr. Farris
[2016-07-27 10:07] LABS: BASO % 0.2 %; BASO ABS # 0.01 K/uL (0-0.2); COMPLETE YES; EOS % 2.5 %; HEMATOCRIT 37.2 % (37-47); IG% 0.2 %; LYMPH % 31.3 %; LYMPH ABS # 1.74 K/uL (1.2-3.4); MEAN CELL VOLUME 96.1 fL (80-100); MEAN CORPUSCULAR HGB CONC 33.3 g/dl (32-36); MEAN PLATELET VOLUME 9.3 fL (7.4-10.4); MONO % 8.5 %; NEUT % 57.3 %; PLATELET COUNT 290 K/uL (130-400); RED BLOOD COUNT 3.87 M/uL (4.2-5.4); WHITE BLOOD COUNT 5.56 K/uL (4.8-10.8)
[2016-07-27 10:36] LABS: BUN/CREATININE RATIO 4.1 (10-20); CREATININE 1.1 mg/dl (0.60-1.20); POTASSIUM 3.3 mmol/L (3.5-5.1)
[2016-07-27] MEDS ORDERED: POTASSIUM CHLORIDE 10 MEQ TABCR PO ONE (11:15)
[2016-07-27] MEDS: RANITIDINE 300 MG PO SCH ×2 (11:18→21:11)
[2016-07-27 12:19] LABS: CALCIUM 8.3 mg/dl (8.5-10.1)
[2016-07-27 15:00] VITALS: BP 115/67; PULSE 59; TEMP 36.7; O2SAT 97
--- NOTE | 2016-07-27 15:32 | Progress Note ---
Internal Med Progress Note Date of Service: July 27, 2016. Provider Documentation: SUBJECTIVE: The patient was seen and examined Left lower quadrant pain is still there No Fever,chills No Nausea and or vomiting Bowel not moved Passing Flatus OBJECTIVE: Vital Signs-as noted below Exam: General-No distress t rest Eyes-normal ENT-normal Neck-supple Lungs-clear to ausucltate bilaterally Heart-Regular,no murmur appreciated Abdomen-Soft,mildly tender LLQ,no masses,bowel sound present Extremities-No edema [id number] Lab data as noted below. ASSESSMENT & PLAN: RECURRENT ACUTE SIGMOID DIVERTICULITIS Third episode; prior episodes in Nov 2015 and June [address] abdomen- acute sigmoid diverticulitis, no abscess or free air Given dose of Unasyn in ER Now on IV Zosyn , prior intolerance to Cipro and Flagyl noted IVF's; pain control with IV morphine PRN Clear liquid diet started and advance as tolerated Consult general surgery-appreciate input Clinically better -WCC normalized,no fever,chills Diet advanced If tolerating and improved will discharge home tomorrow GERD Has persistent symptoms despite current regimen of Prilosec and Zantac BID Seen by Dr. Jon; scheduled for pH impedance and motility study in August Continue current regimen (patient requests to bring in from home) Denies any symptoms now HISTORY OF DVT In remote past possibly related to contraception pills No longer on anticoagulation No signs and or symptoms of DVT RECTAL BLEEDING Known history of internal and external hemorrhoids Likely hemorrhoidal as pt reports occasional trace blood on toilet paper and rectal discomfort No Obvious bleeding and or diarrhea DVT PROPHYLAXIS Lovenox SQ FULL CODE DISPOSITION Admit to med/surg Follows with Dr. Dobbins for primary care Likely home tomorrow Vital Signs: Date Time Temp Pulse Resp B/P Pulse Ox O2 Delivery O2 Flow Rate FiO2 07/27/16 15:00 36.7 59 18 115/67 97 07/27/16 08:00 Room Air 07/27/16 07:15 37.5 57 18 159/73 97 Room Air 07/27/16 00:00 Room Air 07/26/16 23:16 36.6 50 20 112/70 98 Room Air 07/26/16 16:00 98 Room Air Lab Results: Results Past 24 Hours Test 07/27/16 09:30 Range/Units White Blood Count 5.56 4.8-10.8 K/uL Red Blood Count 3.87 4.2-5.4 M/uL Hemoglobin 12.4 12.0-16.0 g/dL Hematocrit 37.2 37-47 % Mean Corpuscular Volume 96.1 80-100 fL Mean Corpuscular Hemoglobin 32.0 25-34 pg Mean Corpuscular Hemoglobin Concent 33.3 32-36 g/dl Platelet Count 290 130-400 K/uL Mean Platelet Volume 9.3 7.4-10.4 fL Neutrophils (%) (Auto) 57.3 % Lymphocytes (%) (Auto) 31.3 % Monocytes (%) (Auto) 8.5 % Eosinophils (%) (Auto) 2.5 % Basophils (%) (Auto) 0.2 % Neutrophils # (Auto) 3.19 1.4-6.5 K/uL Lymphocytes # (Auto) 1.74 1.2-3.4 K/uL Monocytes # (Auto) 0.47 0.11-0.59 K/uL Eosinophils # (Auto) 0.14 0-0.5 K/uL Basophils # (Auto) 0.01 0-0.2 K/uL RDW Standard Deviation 43.3 36.4-46.3 fL RDW Coefficient of Variation 12.4 11.5-14.5 % Immature Granulocyte % (Auto) 0.2 % Immature Granulocyte # (Auto) 0.01 0.00-0.02 K/uL Sodium Level 142 136-145 mmol/L Potassium Level 3.3 3.5-5.1 mmol/L Chloride Level 107 98-107 mmol/L Carbon Dioxide Level 30 21-32 mmol/L Anion Gap 5.0 3-11 mmol/L Blood Urea Nitrogen 5 7-18 mg/dl Creatinine 1.10 0.60-1.20 mg/dl Est Creatinine Clear Calc Drug Dose 35.4 ml/min Estimated GFR () 61.0 Estimated GFR (Non- 52.6 BUN/Creatinine Ratio 4.1 10-20 Random Glucose 130 70-99 mg/dl Calcium Level 8.3 8.5-10.1 mg/dl
[2016-07-27 16:00] VITALS: O2SAT 98
[2016-07-27] MEDS: MoRPHine SULFATE 4 MG/ML 1 ML CARP\\VIAL IV PRN ×2 (18:14→23:31)
[2016-07-27 22:41] VITALS: BP 151/83; PULSE 70; TEMP 36.1; O2SAT 97
[2016-07-27 22:45] VITALS: BP 131/67; PULSE 67; TEMP 37.3; O2SAT 97
[2016-07-28 00:15] VITALS: O2SAT 98
[2016-07-28] MEDS: HEPARIN SOD 5000 UNIT/0.5 ML CARP SQ SCH ×2 (07:35→20:17)
[2016-07-28 07:42] VITALS: BP 114/69; PULSE 63; TEMP 37.1; O2SAT 95
[2016-07-28] MEDS: PIPERACILL/TAZOBAC IV 3.375 GM in DEXTROSE 5% 100ML 100 ML IV SCH ×3 (08:23→23:28)
[2016-07-28] MEDS: OMEPRAZOLE 40 MG PO SCH ×2 (08:25→17:05)
[2016-07-28] MEDS: SODIUM CHLORIDE 0.9% 1000ML 1,000 ML IV SCH (09:25)
[2016-07-28] MEDS: MoRPHine SULFATE 4 MG/ML 1 ML CARP\\VIAL IV PRN (09:26)
--- NOTE | 2016-07-28 11:38 | Surgery Progress Note ---
Surgery Progress Note Date of Service July 28, 2016. Subjective + flatus, No bowel movement, No nausea, No vomiting Pain decreased today Objective Vital Signs: Date Time Temp Pulse Resp B/P Pulse Ox O2 Delivery O2 Flow Rate FiO2 07/28/16 08:35 Room Air 07/28/16 07:42 37.1 63 16 114/69 95 Room Air 07/28/16 00:15 98 Room Air 07/27/16 22:45 37.3 67 16 131/67 97 Room Air 07/27/16 16:00 98 Room Air 07/27/16 15:00 36.7 59 18 115/67 97 Abdomen: non distended, soft, + tenderness (lower midline and LLQ) Assessment & Plan Uncomplicated diverticulitis Responding slowly to conservative measures Continu IV antibiotics and bowel rest
[2016-07-28] MEDS: RANITIDINE 300 MG PO SCH ×2 (12:20→20:16)
--- NOTE | 2016-07-28 14:14 | Progress Note ---
Internal Med Progress Note Date of Service: July 28, 2016. Provider Documentation: SUBJECTIVE: The patient was seen and examined Left lower quadrant pain is still there Has had more pain last evening Pain is a little better today Tolerated full liquid breakfast today OBJECTIVE: Vital Signs-as noted below Exam: General-No distress t rest Eyes-normal ENT-normal Neck-supple Lungs-clear to ausucltate bilaterally Heart-Regular,no murmur appreciated Abdomen-Soft,mildly tender LLQ,no masses,bowel sound present Extremities-No edema [id number] Lab data as noted below. ASSESSMENT & PLAN: RECURRENT ACUTE SIGMOID DIVERTICULITIS Third episode; prior episodes in Nov 2015 and June [address] abdomen- acute sigmoid diverticulitis, no abscess or free air Given dose of Unasyn in ER Now on IV Zosyn , prior intolerance to Cipro and Flagyl noted IVF's; pain control with IV morphine PRN Clear liquid diet started and advance as tolerated Consult general surgery-appreciate input Clinically better -WCC normalized,no fever,chills Continue with full liquid diet for today Bowel not moved yet If tolerating and improved will discharge home tomorrow GERD Has persistent symptoms despite current regimen of Prilosec and Zantac BID Seen by Dr. Jon; scheduled for pH impedance and motility study in August Continue current regimen (patient requests to bring in from home) Denies any symptoms now HISTORY OF DVT In remote past possibly related to contraception pills No longer on anticoagulation No signs and or symptoms of DVT RECTAL BLEEDING Known history of internal and external hemorrhoids Likely hemorrhoidal as pt reports occasional trace blood on toilet paper and rectal discomfort No Obvious bleeding and or diarrhea DVT PROPHYLAXIS Lovenox SQ FULL CODE DISPOSITION Admit to med/surg Follows with Dr. Dobbins for primary care Likely home in a day or two Vital Signs: Date Time Temp Pulse Resp B/P Pulse Ox O2 Delivery O2 Flow Rate FiO2 07/28/16 08:35 Room Air 07/28/16 07:42 37.1 63 16 114/69 95 Room Air 07/28/16 00:15 98 Room Air 07/27/16 22:45 37.3 67 16 131/67 97 Room Air 07/27/16 16:00 98 Room Air 07/27/16 15:00 36.7 59 18 115/67 97
[2016-07-28 15:28] VITALS: BP 127/73; PULSE 67; TEMP 37.1; O2SAT 98
[2016-07-28] MEDS ORDERED: TRAMADOL HCL 50 MG TAB PO PRN (18:45)
[2016-07-28] MEDS ORDERED: NURSING VERBAL MED ORDER ONE (18:45)
[2016-07-28 20:24] VITALS: O2SAT 98
[2016-07-28 23:42] VITALS: BP 128/72; PULSE 63; TEMP 36.8; O2SAT 95
[2016-07-28 23:48] VITALS: O2SAT 98
[2016-07-29] MEDS: SODIUM CHLORIDE 0.9% 1000ML 1,000 ML IV SCH (05:49)
[2016-07-29 06:43] LABS: HEMATOCRIT 35.9 % (37-47); MEAN CORPUSCULAR HEMOGLOBIN 32.3 pg (25-34); MEAN PLATELET VOLUME 9.4 fL (7.4-10.4); PLATELET COUNT 279 K/uL (130-400); RED BLOOD COUNT 3.78 M/uL (4.2-5.4); WHITE BLOOD COUNT 4.84 K/uL (4.8-10.8)
[2016-07-29 07:09] LABS: BUN/CREATININE RATIO 8.2 (10-20); CALCIUM 8.7 mg/dl (8.5-10.1); CREATININE 0.97 mg/dl (0.60-1.20)
[2016-07-29 07:12] VITALS: BP 105/56; PULSE 54; TEMP 36.8; O2SAT 98
[2016-07-29 07:16] LABS: POTASSIUM 3.9 mmol/L (3.5-5.1)
[2016-07-29] MEDS: OMEPRAZOLE 40 MG PO SCH (08:25)
[2016-07-29] MEDS: HEPARIN SOD 5000 UNIT/0.5 ML CARP SQ SCH (08:25)
[2016-07-29] MEDS: PIPERACILL/TAZOBAC IV 3.375 GM in DEXTROSE 5% 100ML 100 ML IV SCH (08:25)
[2016-07-29] MEDS: RANITIDINE 300 MG PO SCH (12:17)
--- NOTE | 2016-07-29 13:02 | Progress Note ---
Internal Med Progress Note Date of Service: July 29, 2016. Provider Documentation: SUBJECTIVE: The patient was seen and examined Still has occasional pain LLQ Tolerating regular diet Wants to go home OBJECTIVE: Vital Signs-as noted below Exam: General-No distress at rest Eyes-normal ENT-normal Neck-supple Lungs-clear to ausucltate bilaterally Heart-Regular,no murmur appreciated Abdomen-Soft,minimally tender LLQ,no masses,bowel sound present Extremities-No edema [id number] Lab data as noted below. ASSESSMENT & PLAN: RECURRENT ACUTE SIGMOID DIVERTICULITIS Third episode; prior episodes in Nov 2015 and June [address] abdomen- acute sigmoid diverticulitis, no abscess or free air Given dose of Unasyn in ER Now on IV Zosyn , prior intolerance to Cipro and Flagyl noted IVF's; pain control with IV morphine PRN Clear liquid diet started and advance as tolerated Consult general surgery-appreciate input Clinically better -WCC normalized,no fever,chills Started on full liquid diet and diet advanced Bowel moved and feels a lot better Tolerating regular diet Will discharge today on oral Augmentin and Ultram for pain control GERD Has persistent symptoms despite current regimen of Prilosec and Zantac BID Seen by Dr. Jon; scheduled for pH impedance and motility study in August Continue current regimen (patient requests to bring in from home) Denies any symptoms now HISTORY OF DVT In remote past possibly related to contraception pills No longer on anticoagulation No signs and or symptoms of DVT RECTAL BLEEDING Known history of internal and external hemorrhoids Likely hemorrhoidal as pt reports occasional trace blood on toilet paper and rectal discomfort No Obvious bleeding and or diarrhea DVT PROPHYLAXIS Lovenox SQ FULL CODE DISPOSITION Admit to med/surg Follows with Dr. Dobbins for primary care Likely home in a day or two Vital Signs: Date Time Temp Pulse Resp B/P Pulse Ox O2 Delivery O2 Flow Rate FiO2 07/29/16 08:15 Room Air 07/29/16 07:12 36.8 54 16 105/56 98 Room Air 07/28/16 23:48 98 Room Air 07/28/16 23:42 36.8 63 16 128/72 95 Room Air 07/28/16 20:24 98 Room Air 07/28/16 16:00 Room Air 07/28/16 15:28 37.1 67 18 127/73 98 Room Air Lab Results: Results Past 24 Hours Test 07/29/16 06:01 Range/Units White Blood Count 4.84 4.8-10.8 K/uL Red Blood Count 3.78 4.2-5.4 M/uL Hemoglobin 12.2 12.0-16.0 g/dL Hematocrit 35.9 37-47 % Mean Corpuscular Volume 95.0 80-100 fL Mean Corpuscular Hemoglobin 32.3 25-34 pg Mean Corpuscular Hemoglobin Concent 34.0 32-36 g/dl RDW Standard Deviation 42.4 36.4-46.3 fL RDW Coefficient of Variation 12.3 11.5-14.5 % Platelet Count 279 130-400 K/uL Mean Platelet Volume 9.4 7.4-10.4 fL Sodium Level 143 136-145 mmol/L Potassium Level 3.9 3.5-5.1 mmol/L Chloride Level 108 98-107 mmol/L Carbon Dioxide Level 29 21-32 mmol/L Anion Gap 6.0 3-11 mmol/L Blood Urea Nitrogen 8 7-18 mg/dl Creatinine 0.97 0.60-1.20 mg/dl Est Creatinine Clear Calc Drug Dose 40.2 ml/min Estimated GFR () 71.0 Estimated GFR (Non- 61.3 BUN/Creatinine Ratio 8.2 10-20 Random Glucose 76 70-99 mg/dl Calcium Level 8.7 8.5-10.1 mg/dl
[2016-07-29 13:21] VITALS: BP 105/56; PULSE 54; TEMP 36.8; O2SAT 98
[2016-07-29] MEDS ORDERED: AMOX500T PO (13:33)
[2016-07-29] MEDS ORDERED: ULT50X PO (13:33)
[2016-07-29] MEDS ORDERED: LCTX PO (13:33)
--- NOTE | 2016-07-29 13:35 | Discharge Instructions ---
Discharge Instructions Date of Service July 29, 2016. Admission Reason for Admission: Acute Diverticulitis Discharge Discharge Diagnosis / Problem: Acute Sigmoid Diverticulitis Discharge Goals Goal(s): Prevent Disease Progression Activity Recommendations Activity Limitations: resume your previous activity . Instructions / Follow-Up Instructions / Follow-Up Dr Dobbins's office will call for appointment Current Hospital Diet Patient's current hospital diet: Low Fiber Diet Discharge Diet Recommended Diet: Low Fiber Diet Pending Studies Studies pending at discharge: no Medical Emergencies . Who to Call and When: Medical Emergencies: If at any time you feel your situation is an emergency, please call 911 immediately. . Non-Emergent Contact Non-Emergency issues call your: Primary Care Provider . Past History Medical & Surgical History: (1) Diverticula of colon (2) Acute diverticulitis (3) Deep venous thrombosis (4) History of diverticulitis (5) H/O esophagogastroduodenoscopy (6) S/P laparoscopic cholecystectomy (7) S/P LEVAR-BSO (8) History of cataract surgery (9) H/O colonoscopy (10) GERD (gastroesophageal reflux disease) (11) Medication intolerance . "Provider Documentation" section prepared by Abiodun Umanzor. . VTE Core Measure Inpt VTE Proph given/why not?: SCD's
--- NOTE | 2016-07-29 14:45 | Discharge Summary ---
Discharge Summary Date of Service July 29, 2016. Discharge Summary Admission Date: July 25, 2016 at 18:49 Discharge Date: July 29, 2016 Discharge Disposition: Home Principal Diagnosis: Acute Sigmoid Diverticulitis Secondary Diagnoses/Problems: Please see H&P and Hospital Progress note Consultations: Surgery Medication Reconciliation New Medications: Amoxicillin & Pot Clavulanate (Augmentin 500MG) 1 Tab Tab 500 MG PO Q8H for 10 Days, TAB Lactobacillus Acidophilus (Lactinex) Tab 2 TAB PO BID, #30 TAB Tramadol HCl (Tramadol HCl) 50 Mg Tab 50 MG PO Q6 PRN for Pain for 7 Days, #20 TAB Continued Medications: Diclofenac Sodium (Topical) (Voltaren 1% Top Gel) 1 % Gel 1 APPLN EX UD PRN for Pain Ketotifen Fumarate (Ophth) (Zaditor 0.025% Oph) 0.025 % [place] 1 DROP OPB Q12H PRN for seasonal allergies, BTL Omeprazole (Prilosec) 40 Mg Cap 40 MG PO BID, CAP Take 40 mg by mouth in morning and at 5 pm. Ranitidine (Zantac) 300 Mg Tab 300 MG PO BID, TAB Take 300 mg by mouth at noon and before bed. Admission Information HPI (per Admitting provider): This is a 65 year old female with PMH of diverticulitis, GERD, osteoarthritis, who presents to the ED with abdominal pain. Patient was recently seen in ER for abdominal in early June 2016 and treated with 7 day course of Augmentin for possible developing sigmoid diverticulitis seen on CT. Abdominal pain had resolved. Then last night around 8 pm she developed severe LLQ abdominal pain which radiates across the entire abdomen. She describes pain as spasms which wax and wane. She currently rates pain 8/10. Morphine given in ER helped. She reports associated chills as well as nausea which resolved with Zofran. She reports ongoing reflux despite being on omeprazole 40 mg BID and ranitidine 300 mg BID. She reports chronic dry cough attributed to reflux. Pt has seen Dr. Jon and is scheduled for pH impedance and motility study in August. Patient reports having a normal consistency BM this morning. She chronically has intermittent trace red blood on the toilet paper and rectal discomfort attributed to her known hemorrhoids. Weight is down approx 4 lb over past month. She did not eat today but appetite was normal before that. She denies fever, swallowing difficulty, chest pain, SOB, diarrhea, melena, dysuria, urinary frequency. Her first diverticulitis episode was last year and was treated as an outpatient and last's months possible episode was her second occurrence. NSAID use is rare (once per month). Last EGD/ colonoscopy in February 2016- results noted below. Past Medical/Surgical History Medical Problems: (1) Deep venous thrombosis Permanent Comment: possibly related to oral contraceptive pills; no longer on anticoagulation Status: Chronic (2) Diverticulitis Status: Resolved (3) GERD (gastroesophageal reflux disease) Status: Chronic (4) History of diverticulitis Status: Chronic (5) Knee Surgery Status: Resolved (6) Osteoarthritis Status: Chronic Surgical Problems: (1) H/O colonoscopy Status: Chronic (2) H/O esophagogastroduodenoscopy Status: Chronic (3) History of cataract surgery Status: Chronic (4) S/P cholecystectomy Status: Resolved (5) S/P laparoscopic cholecystectomy Status: Chronic (6) S/P LEVAR-BSO Status: Chronic Family History Cardiac disorder FATHER Diabetes mellitus FATHER MOTHER Heart disease MOTHER ( age 83 of [place]) Hypertension Kidney stones Social History Smoking Status: Never Smoker Alcohol Use: occasionally (rare) Drug Use: none Marital Status: Housing status: lives with significant other Occupational Status: employed Immunizations History of Influenza Vaccine: Yes Influenza Vaccine Date: Jan 22, 2012 History of Tetanus Vaccine?: Yes History of Pneumococcal: No History of Hepatitis B Vaccine: No Multi-Drug Resistant Organisms History of MDRO: No Allergies Coded Allergies: Ciprofloxacin (Unverified Adverse Reaction, Intermediate, AFFECTED ALL JOINTS, 07/25/16) Cortisone (Unverified Adverse Reaction, Mild, swelling, 07/25/16) Home Medications Scheduled Omeprazole (Prilosec), 40 MG PO BID Ranitidine (Zantac), 300 MG PO BID Scheduled PRN Diclofenac Sodium (Topical) (Voltaren 1% Top Gel), 1 APPLN EX UD PRN for Pain Ketotifen Fumarate (Ophth) (Zaditor 0.025% Oph), 1 DROP OPB Q12H PRN for seasonal allergies Review of Systems Ten systems reviewed and negative except as listed in HPI. Physical Ex - H&P Physical Exam Vital Signs Date Time Temp Pulse Resp B/P Pulse Ox O2 Delivery O2 Flow Rate FiO2 07/25/16 18:04 81 18 139/76 98 Room Air 07/25/16 16:22 36.6 92 18 165/87 98 Room Air General Appearance: + thin, + pertinent finding (very pleasant alert 65 year old female, lying in bed, no distress) Head: normocephalic, atraumatic Eyes: normal inspection, PERRL, EOMI ENT: hearing grossly normal, pharynx normal Neck: supple, trachea midline Respiratory/Chest: lungs clear, normal breath sounds, no respiratory distress Cardiovascular: regular rate, rhythm, no murmur Abdomen/GI: soft, + abnormal bowel sounds (hyperactive bowel sounds), + pertinent finding (moderately tender in left lower quadrant, mildly tender in right lower quadrant) Extremities/Musculoskelatal: no calf tenderness, no pedal edema Neurologic/Psych: alert, normal mood/affect, oriented x 3, + pertinent finding (no focal deficit on gross examination) Skin: normal color, warm/dry Diagnostics - H&P Diagnostics Laboratory Results Results Past 24 Hours Test 07/25/16 16:40 07/25/16 16:42 07/25/16 16:59 07/25/16 17:04 Range/Units White Blood Count 13.13 4.8-10.8 K/uL Red Blood Count 4.51 4.2-5.4 M/uL Hemoglobin 14.8 12.0-16.0 g/dL Hematocrit 42.7 37-47 % Mean Corpuscular Volume 94.7 80-100 fL Mean Corpuscular Hemoglobin 32.8 25-34 pg Mean Corpuscular Hemoglobin Concent 34.7 32-36 g/dl Platelet Count 335 130-400 K/uL Mean Platelet Volume 9.3 7.4-10.4 fL Neutrophils (%) (Auto) 86.1 % Lymphocytes (%) (Auto) 7.9 % Monocytes (%) (Auto) 5.4 % Eosinophils (%) (Auto) 0.2 % Basophils (%) (Auto) 0.1 % Neutrophils # (Auto) 11.31 1.4-6.5 K/uL Lymphocytes # (Auto) 1.04 1.2-3.4 K/uL Monocytes # (Auto) 0.71 0.11-0.59 K/uL Eosinophils # (Auto) 0.02 0-0.5 K/uL Basophils # (Auto) 0.01 0-0.2 K/uL RDW Standard Deviation 43.0 36.4-46.3 fL RDW Coefficient of Variation 12.5 11.5-14.5 % Immature Granulocyte % (Auto) 0.3 % Immature Granulocyte # (Auto) 0.04 0.00-0.02 K/uL Prothrombin Time 11.1 9.0-12.0 SECONDS Prothromb Time International Ratio 1.0 0.9-1.1 Activated Partial Thromboplast Time 24.9 21.0-31.0 SECONDS Partial Thromboplastin Ratio 1.0 Sodium Level 139 136-145 mmol/L Potassium Level 4.0 3.5-5.1 mmol/L Chloride Level 104 98-107 mmol/L Carbon Dioxide Level 27 21-32 mmol/L Anion Gap 8.0 20.0 16-25 mmol/L Blood Urea Nitrogen 13 7-18 mg/dl Creatinine 0.94 0.60-1.20 mg/dl Est Creatinine Clear Calc Drug Dose 41.4 ml/min Estimated GFR () 73.8 Estimated GFR (Non- 63.7 BUN/Creatinine Ratio 13.8 10-20 Random Glucose 111 70-99 mg/dl Calcium Level 9.8 8.5-10.1 mg/dl Total Bilirubin 1.8 0.2-1 mg/dl Aspartate Amino Transf (AST/SGOT) 14 15-37 U/L Alanine Aminotransferase (ALT/SGPT) 26 12-78 U/L Alkaline Phosphatase 102 45-117 U/L Total Protein 7.6 6.4-8.2 gm/dl Albumin 4.6 3.4-5.0 gm/dl Globulin 3.0 2.5-4.0 gm/dl Albumin/Globulin Ratio 1.5 0.9-2 Urine Color YELLOW Urine Appearance CLEAR CLEAR Urine pH 5.5 4.5-7.5 Urine Specific [place] 1.023 1.000-1.030 Urine Protein NEG NEG Urine Glucose (UA) NEG NEG Urine Ketones 3+ NEG Urine Occult Blood TRACE NEG Urine Nitrite NEG NEG Urine Bilirubin NEG NEG Urine Urobilinogen NEG NEG Urine Leukocyte Esterase TRACE NEG Urine WBC (Auto) 5-10 0-5 /hpf Urine RBC (Auto) 0-4 0-4 /hpf Urine Hyaline Casts (Auto) 1-5 0-5 /lpf Urine Epithelial Cells (Auto) 10-20 0-5 /lpf Urine Bacteria (Auto) NEG NEG Lactic Acid Level 1.0 0.4-2.0 mmol/L Bedside Hemoglobin 14.3 12.0-16.0 g/dl Bedside Hematocrit 42 37-47 % Bedside Sodium 138 135-144 mEq/L Bedside Potassium 4.1 3.3-5.0 mEq/L Bedside Chloride 103 101-112 mEq/L Bedside Total CO2 21 24-31 mEq/l Bedside Blood Urea Nitrogen 12 7-18 mg/dl Bedside Creatinine 0.7 0.6-1.3 mg/dl Bedside Glucose (other) 114 70-99 mg/dl Bedside Ionized Calcium (Epifanio) 1.17 1.12-1.32 mmol/l Diagnostic Radiology SINGLE VIEW CHEST CLINICAL HISTORY: Generalized abdominal pain. FINDINGS: An AP, portable, upright chest radiograph is compared to study dated 01/23/2016. The examination is degraded by portable technique and patient rotation. The cardiomediastinal silhouette is unremarkable. There is atherosclerotic calcification of the thoracic aorta. The lungs appear hyperinflated and hyperlucent with flattening the diaphragm suggesting emphysema. Biapical scarring is observed. No airspace consolidation or pleural effusion is seen. No pneumothorax is identified. The bony thorax is grossly intact. IMPRESSION: Findings suggest emphysema. There is no acute cardiopulmonary abnormality. CT SCAN OF THE ABDOMEN AND PELVIS WITH IV CONTRAST CLINICAL HISTORY: Left lower quadrant abdominal pain. COMPARISON STUDY: Prior abdominal CT scans, most recently dated 07/03/2016. TECHNIQUE: Following the IV administration of 94 cc of Optiray 320, CT scan of the abdomen and pelvis is performed from the lung bases to the proximal femora. Images are reviewed in the axial, sagittal, and coronal planes. IV contrast was administered without complication. Automated dose control exposure was utilized. CT DOSE: 234.26 mGy.cm FINDINGS: Lung bases: The heart is normal in size and without pericardial effusion. The lung bases are clear. Liver: The contrast-enhanced liver is normal in size, contour, and attenuation. There is central intrahepatic biliary ductal dilatation, likely related to previous cholecystectomy. The hepatic veins and portal veins are patent. Gallbladder: Surgically absent noting clips in the gallbladder fossa. Spleen: Normal in size and attenuation. There is an indeterminant 1.6 cm low-attenuation lesion in the anterior spleen. This has not significantly changed dating back to 2013 and is of doubtful significance. Additional subcentimeter splenic densities are incidentally noted. Pancreas: Unremarkable. Adrenal glands: Unremarkable. Kidneys: The contrast enhanced kidneys are normal in size and without hydronephrosis. The kidneys enhance symmetrically. A subcentimeter cortical hypodensity in left kidney represent a cyst but is too small for definitive characterization. This is unchanged from previous. Abdominal vasculature: The abdominal aorta is normal in course and caliber. Bowel: There is no bowel obstruction. There is mild to moderate diverticulosis of the sigmoid colon. There is wall thickening and pericolonic inflammation identified involving the sigmoid colon typical in appearance for acute diverticulitis. There is no evidence of diverticular abscess. The appendix is nonocclusive visualized. Peritoneum: There is no intraperitoneal free air or abdominal ascites. Lymphadenopathy: None. Pelvic viscera: The bladder is normal as visualized. The uterus is surgically absent. No adnexal lesion is seen. Skeletal structures: The skeletal structures are osteopenic. No lytic or blastic lesions are seen. A sclerotic focus in the body of L3 is unchanged from 2013 and of doubtful significance. There is mild lumbosacral spondylosis. Degenerative change is also seen involving the sacroiliac joints. IMPRESSION: There is sigmoid diverticulosis, with wall thickening and pericolonic inflammation seen involving the sigmoid colon. The appearance likely represents acute sigmoid diverticulitis. No intraperitoneal free air is seen and there is no evidence of diverticular abscess. Impression - H&P Impression Assessment and Plan RECURRENT ACUTE SIGMOID DIVERTICULITIS Third episode; prior episodes in Nov 2015 and June [address] abdomen- acute sigmoid diverticulitis, no abscess or free air Afebrile; + leukocytosis (WBC 13k); HR and BP stable; lactic acid WNL Given dose of Unasyn in ER Will continue Unasyn; prior intolerance to Cipro and Flagyl noted IVF's; pain control with IV morphine PRN Clear liquid diet Consult general surgery GERD Has persistent symptoms despite current regimen of Prilosec and Zantac BID Seen by Dr. Jon; scheduled for pH impedance and motility study in August Continue current regimen (patient requests to bring in from home) HISTORY OF DVT In remote past possibly related to contraception pills No longer on anticoagulation RECTAL BLEEDING Known history of internal and external hemorrhoids Likely hemorrhoidal as pt reports occasional trace blood on toilet paper and rectal discomfort Hg is WNL DVT PROPHYLAXIS Lovenox SQ FULL CODE DISPOSITION Admit to med/surg Follows with Dr. Dobbins for primary care Patient seen in collaboration with Dr. Stewart. Please see his addendum. ADDENDUM: This is a 65 year old female with PMH of diverticulitis, GERD presents with acute lower abdominal pain, chills, nausea - presented to the ER and had a CT scan done, showing acute sigmoid diverticulitis. She has had this before with similar presentation, with good response to fluids and IV antibiotics. Currently pain is manageable. VITALS: Last Vital Signs Documentation Date Time Temp Pulse Resp B/P Pulse Ox O2 Delivery O2 Flow Rate FiO2 07/25/16 20:11 74 18 136/81 99 07/25/16 18:04 Room Air 07/25/16 16:22 36.6 GEN: no acute distress CVS: +s1, s2, RRR LUNGS: cta b/l, no wheezing ABD: tenderness, soft abdomen, tender to palpation in the lower abdomen, normal bowel sounds, no rigidity EXT: no edema Acute Sigmoid Diverticulitis recurrent episodes (third episode) mild leukocytosis, afebrile CT abdomen does not show abscess, perforation, etc. allergic to Cipro and does not tolerate Flagyl well will continue IV Unasyn, IVFs, clear liquid diet and advance on / if tolerated analgesics and antiemetics PRN general surgery consultation due to recurrent episodes GERD patient has persistent symptoms despite being on Prilosec BID and Zantac BID is scheduled for outpatient pH studies with GI for now, continue current medications VTE Prophylaxis VTE Risk Assessment Done? Y/N: Yes Risk Level: Moderate Physical Exam (per Admitting): General Appearance: + thin, + pertinent finding (very pleasant alert 65 year old female, lying in bed, no distress) Head: normocephalic, atraumatic Eyes: normal inspection, PERRL, EOMI ENT: hearing grossly normal, pharynx normal Neck: supple, trachea midline Respiratory/Chest: lungs clear, normal breath sounds, no respiratory distress Cardiovascular: regular rate, rhythm, no murmur Abdomen/GI: soft, + abnormal bowel sounds (hyperactive bowel sounds), + pertinent finding (moderately tender in left lower quadrant, mildly tender in right lower quadrant) Extremities/Musculoskelatal: no calf tenderness, no pedal edema Neurologic/Psych: alert, normal mood/affect, oriented x 3, + pertinent finding (no focal deficit on gross examination) Skin: normal color, warm/dry Hospital Course RECURRENT ACUTE SIGMOID DIVERTICULITIS Third episode; prior episodes in Nov 2015 and June [address] abdomen- acute sigmoid diverticulitis, no abscess or free air Given dose of Unasyn in ER Now on IV Zosyn , prior intolerance to Cipro and Flagyl noted IVF's; pain control with IV morphine PRN Clear liquid diet started and advance as tolerated Consult general surgery-appreciate input Clinically better -WCC normalized,no fever,chills Started on full liquid diet and diet advanced Bowel moved and feels a lot better Tolerating regular diet Will discharge today on oral Augmentin and Ultram for pain control GERD Has persistent symptoms despite current regimen of Prilosec and Zantac BID Seen by Dr. Jon; scheduled for pH impedance and motility study in August Continue current regimen (patient requests to bring in from home) Denies any symptoms now HISTORY OF DVT In remote past possibly related to contraception pills No longer on anticoagulation No signs and or symptoms of DVT RECTAL BLEEDING Known history of internal and external hemorrhoids Likely hemorrhoidal as pt reports occasional trace blood on toilet paper and rectal discomfort No Obvious bleeding and or diarrhea DVT PROPHYLAXIS Lovenox SQ FULL CODE DISPOSITION Admit to med/surg Follows with Dr. Dobbins for primary care Likely home in a day or two Total time spent on discharge = 35 minutes This includes examination of the patient, discharge planning, medication reconciliation, and communication with other providers. Discharge Instructions Date of Service July 29, 2016. Admission Reason for Admission: Acute Diverticulitis Discharge Discharge Diagnosis / Problem: Acute Sigmoid Diverticulitis Discharge Goals Goal(s): Prevent Disease Progression Activity Recommendations Activity Limitations: resume your previous activity . Instructions / Follow-Up Instructions / Follow-Up Dr Dobbins's office will call for appointment Current Hospital Diet Patient's current hospital diet: Low Fiber Diet Discharge Diet Recommended Diet: Low Fiber Diet Pending Studies Studies pending at discharge: no Medical Emergencies . Who to Call and When: Medical Emergencies: If at any time you feel your situation is an emergency, please call 911 immediately. . Non-Emergent Contact Non-Emergency issues call your: Primary Care Provider . Past History Medical & Surgical History: (1) Diverticula of colon (2) Acute diverticulitis (3) Deep venous thrombosis (4) History of diverticulitis (5) H/O esophagogastroduodenoscopy (6) S/P laparoscopic cholecystectomy (7) S/P LEVAR-BSO (8) History of cataract surgery (9) H/O colonoscopy (10) GERD (gastroesophageal reflux disease) (11) Medication intolerance . "Provider Documentation" section prepared by Abiodun Umanzor. . VTE Core Measure Inpt VTE Proph given/why not?: SCD's <Electronically signed by Abiodun Umanzor M.D.> Signed: 07/29/16 9813 Additional Copies To Garry Dobbins M.D.([facility])
== END 2016-07-29 14:00 | disposition home or self-care (01) | DRG 392 ==
LOC: ENRESERVTM → ENRESERVDT → C.EDB 16:20 → C.MED 18:49
PROVIDERS: ADMIT Family Medicine; ATTEND Internal Medicine
DX: K57.32 Diverticulitis of large intestine without perforation or abscess without bleeding (principal); K21.9 Gastro-esophageal reflux disease without esophagitis; K64.9 Unspecified hemorrhoids; M19.90 Unspecified osteoarthritis, unspecified site; Z86.718 Personal history of other venous thrombosis and embolism; Z79.899 Other long term (current) drug therapy

== ENCOUNTER → 2016-08-23 | Outpatient (CLI) | payer BC ==
[~2016-08-23] MED LIST changes: +DICL1GEL12 EX; +KETO0.0216 OPB; +LCTX PO; +ULT50X PO
--- NOTE | 2016-08-23 07:59 | DIAGNOSTIC IMAGING REPORT ---
DOUBLE CONTRAST UPPER GI SERIES CLINICAL HISTORY: Severe abdominal pain and gastroesophageal reflux disease. COMPARISON STUDY: Barium swallow June 25, 2016. FLUOROSCOPY TIME: 3.3 minutes. FINDINGS: 20 fluoroscopic images were obtained. Esophageal motility was normal. No esophageal mass or stricture was identified. No reflux was elicited. There was no hiatal hernia. Gastric fold pattern was normal. Duodenum was unremarkable. Ligament of Treitz was normal position. There are cholecystectomy clips. IMPRESSION: Normal double contrast upper GI series. Electronically signed by: Kosta Farnsworth M.D. 08/23/2016 7:58 AM Dictated Date/Time: 08/23/2016 7:56 AM
== END | disposition home or self-care (01) ==
LOC: C.RAD 07:02
PROVIDERS: ATTEND Family Medicine
DX: K21.9 Gastro-esophageal reflux disease without esophagitis (principal)

== ENCOUNTER → 2016-11-28 | Outpatient (CLI) | payer BC | END | disposition home or self-care (01) | LOC: C.PAPS 14:15 | PROVIDERS: ATTEND Obstetrics & Gynecology | DX: Z01.419 Encounter for gynecological examination (general) (routine) without abnormal findings (principal) ==

== ENCOUNTER → 2017-07-10 | Outpatient (CLI) | payer OTHER ==
[~2017-07-10] MED LIST changes: -LCTX PO
--- NOTE | 2017-07-10 15:13 | MAMMOGRAPHY REPORT ---
BILATERAL DIGITAL SCREENING MAMMOGRAM TOMOSYNTHESIS WITH CAD: 07/10/2017 CLINICAL HISTORY: Routine screening. Patient has no complaints. TECHNIQUE: Breast tomosynthesis in addition to standard 2D mammography was performed. Current study was also evaluated with a Computer Aided Detection (CAD) system. COMPARISON: Comparison is made to exams dated: 07/02/2016 mammogram, 06/28/2015 mammogram, 06/25/2014 porfirio mogram, 06/22/2013 mammogram, 06/20/2012 mammogram, and 05/23/2011 mammogram - [facility]. BREAST COMPOSITION: The tissue of both breasts is extremely dense, which lowers the sensitivity of m ammography. FINDINGS: No obvious new suspicious mass, architectural distortion or cluster of microcalcifications is seen. IMPRESSION: ACR BI-RADS CATEGORY 1: NEGATIVE There is no mammographic evidence of malignancy. A 1 year screening mammogram is recommended. The pa tient will receive written notification of the results. Approximately 10% of breast cancers are not detected with mammography. A negative mammographic report should not delay biopsy if a clinically suggestive mass is present. Olesya Moran M.D. ay/:07/10/2017 14:55:41 Survey Operations Director: Celina MELO(Etta)(Lynn), [facility] letter sent: Normal 1/2 BI-RADS Code: ACR BI-RADS Category 1: Negative
== END | disposition home or self-care (01) ==
LOC: C.MAMM 13:07
PROVIDERS: ATTEND Obstetrics & Gynecology
DX: Z12.31 Encounter for screening mammogram for malignant neoplasm of breast (principal)

== ENCOUNTER → 2017-07-12 | Outpatient (CLI) | payer OTHER ==
[~2017-07-12] MED LIST changes: +OPTIRAY 320 IV PRN
--- NOTE | 2017-07-12 16:37 | DIAGNOSTIC IMAGING REPORT ---
ANGIOGRAPHY HEAD COMBO CLINICAL HISTORY: 66 years-old Female with COMBO PER RAD. Acute headache with elevated blood pressure and possible aneurysm COMPARISON STUDY: None available TECHNIQUE: Unenhanced axial CT scan of the brain is performed. Subsequently, following the IV administration of 93 cc of Optiray 320, CT angiogram of the brain was performed from the skull base to the vertex. Images are reviewed in the axial, sagittal, and coronal planes. 3-D MIPS images are created and assessed. IV contrast was administered without complication. A dose lowering technique was utilized adhering to the principles of ALARA. CT DOSE: 665.21 mGy.cm FINDINGS: CT BRAIN: There is no acute intracranial hemorrhage, midline shift, hydrocephalus, intracranial mass, territorial ischemia or abnormal extra-axial collections. No abnormal intra-axial or extra-axial enhancement. Mastoid air cells and middle ear cavities are clear. No calvarial fracture. Paranasal sinuses are clear. CT ANGIOGRAM OF THE BRAIN: The imaged bilateral internal carotid arteries are patent. The bilateral anterior and middle cerebral arteries are also patent. The vertebrobasilar system and posterior cerebral arteries are widely patent. Note is made of origin of the right posterior cerebral artery. There is no aneurysm, high-grade stenosis, or proximal branch occlusion identified. Dural sinuses appear patent. IMPRESSION: 1. No acute intracranial abnormality identified. 2. Unremarkable CTA of the head without aneurysm, high-grade stenosis, dissection or proximal branch occlusion identified. The above report was generated using voice recognition software. It may contain grammatical, syntax or spelling errors. Electronically signed by: John Virk M.D. 07/12/2017 4:36 PM Dictated Date/Time: 07/12/2017 4:30 PM
== END | disposition home or self-care (01) ==
LOC: C.CTS 16:08
PROVIDERS: ATTEND Physician Assistant
DX: I67.1 Cerebral aneurysm, nonruptured (principal)